=== PATIENT | female | born 1955 | race Caucasian/White ===

== ENCOUNTER → 2016-04-29 | Outpatient (CLI) | payer BC ==
[~2016-04-29] VITALS: Ht 165.1 cm; Wt 63.5 kg
[~2016-04-29] MED LIST: HYDR-3781 PO; HYDR12.55 PO; LEFL1TAB4 PO; LIDOCAINE 2% INJ 100 MG/5 ML SDV (FOR ANES.) As Ordered ONE; LISI10TA4 PO; MECL25CH PO; MULT1TAB18 PO; NS 1,000 ML IV SCH; OMEP40CA2 PO; PROPOFOL 200 MG/20 ML VIAL As Ordered ONE; ROPI0.5T PO; SIMV20TA2 PO
--- NOTE | 2016-04-29 08:15 | ROOR ---
Patient Name: Hoa Rodas Procedure Date: 04/29/2016 7:55 AM Date of : 1955 Age: 60 Room: [facility] Gender: Female Note Status: Finalized Procedure: Colonoscopy to Cecum Indications: High risk colon cancer surveillance: Personal history of colonic polyps Providers: Stephen Zaidi MD Referring MD: Tarah Castillo MD Requesting Provider: Medicines: Monitored Anesthesia Care Complications: No immediate complications. Procedure: Pre-Anesthesia Assessment: - The heart rate, respiratory rate, oxygen saturations, blood pressure, adequacy of pulmonary ventilation, and response to care were monitored throughout the procedure. The Colonoscope was introduced through the anus and advanced to the cecum, identified by appendiceal orifice and ileocecal valve. The colonoscopy was performed without difficulty. The patient tolerated the procedure well. The quality of the bowel preparation was excellent. Findings: The perianal and digital rectal examinations were normal. Non-bleeding internal hemorrhoids were found during retroflexion. The hemorrhoids were small and Grade I (internal hemorrhoids that do not prolapse). No other significant abnormalities were identified in a careful examination of the remainder of the colon. The exam was otherwise without abnormality on direct and retroflexion views. Impression: - Non-bleeding internal hemorrhoids. - The examination was otherwise normal on direct and retroflexion views. - No specimens collected. - The exam was otherwise normal to the cecum. Recommendation: - Patient has a contact number available for emergencies. The signs and symptoms of potential delayed complications were discussed with the patient. Return to normal activities tomorrow. Written discharge instructions were provided to the patient. - High fiber diet. - Discharge patient to home. - Continue present medications. - Repeat colonoscopy in 5 years for surveillance. - Return to referring physician. - The findings and recommendations were discussed with the patient's family. Stephen Zaidi MD Stephen Zaidi MD 04/29/2016 8:14:59 AM This report has been signed electronically. Number of Addenda: 0 Note Initiated On: 04/29/2016 7:55 AM Estimated Blood Loss: Estimated blood loss: none.
[2016-04-29 08:45] VITALS: BP 144/91
== END | disposition home or self-care (01) ==
LOC: M OPP 07:02
PROVIDERS: ATTEND Internal Medicine Gastroenterology
DX: Z12.11 Encounter for screening for malignant neoplasm of colon (principal); K64.0 First degree hemorrhoids; Z86.010 Personal history of colon polyps; I10 Essential (primary) hypertension; E78.5 Hyperlipidemia, unspecified; M35.9 Systemic involvement of connective tissue, unspecified; Z78.0 Asymptomatic menopausal state; Z87.891 Personal history of nicotine dependence; Z79.891 Long term (current) use of opiate analgesic; Z79.899 Other long term (current) drug therapy
CPT/HCPCS: 99156; 99157; G0105

== ENCOUNTER → 2016-06-21 | Outpatient (CLI) | payer BC ==
[~2016-06-21] MED LIST changes: -LIDOCAINE 2% INJ 100 MG/5 ML SDV (FOR ANES.) As Ordered ONE; -NS 1,000 ML IV SCH; -PROPOFOL 200 MG/20 ML VIAL As Ordered ONE
[2016-06-21 10:22] LABS: ALBUMIN 3.8 GM/DL (3.2-5.2); ALBUMIN/GLOBULIN RATIO 1.09 (1.00-1.93); ALKALINE PHOSPHATASE 122 U/L (45-117); ALT/SGPT 27 U/L (12-78); ANION GAP 6 MEQ/L (8-16); AST/SGOT 22 U/L (15-37); BILIRUBIN,TOTAL 0.2 MG/DL (0.2-1.0); BLOOD UREA NITROGEN 19 MG/DL (7-18); CALCIUM LEVEL 8.9 MG/DL (8.5-10.1); CARBON DIOXIDE LEVEL 29 MEQ/L (21-32); CHLORIDE LEVEL 107 MEQ/L (98-107); CHOLESTEROL LEVEL 198 MG/DL (<200); GLOMERULAR FILTRATION RATE > 60.0 (>51); GLUCOSE, FASTING 95 MG/DL (70-105); POTASSIUM SERUM 4.6 MEQ/L (3.5-5.1); SODIUM LEVEL 142 MEQ/L (136-145); TOTAL PROTEIN 7.3 GM/DL (6.4-8.2); TRIGLYCERIDES LEVEL 201 MG/DL (<150)
== END ==
LOC: M LAB 09:08
PROVIDERS: ATTEND Physician Assistant Medical
DX: E78.2 Mixed hyperlipidemia (principal); I10 Essential (primary) hypertension

== ENCOUNTER → 2016-10-03 | Outpatient (CLI) | payer BC ==
[~2016-10-03] MED LIST changes: +MECL1CHW2 PO; -MECL25CH PO
--- NOTE | 2016-10-03 12:20 | REPMRS ---
Patient History The patient states she had a clinical breast exam in September 2016.Patient is postmenopausal. Family history of prostate cancer in father at age 50 or over and endometrial cancer in mother at age 29. Digital Mammo Screening Bilat: October 03, 2016 - Exam #: [id number] Bilateral CC and MLO view(s) were taken. Technologist: Margot Timmons, Technologist Prior study comparison: October 02, 2015, bilateral digital mammo screening bilat performed at [facility]. September 28, 2014, bilateral digital mammo screening bilat performed at [facility]. FINDINGS: There are scattered fibroglandular densities. There has been no change in the appearance of the mammogram from the prior studies. There is a mild amount of residual fibroglandular tissue which is fairly symmetric. There is no interval development of dominant mass, architectural distortion, or clustered microcalcification suggestive of malignancy. ASSESSMENT: BI-RADS/ACR category 1 mammogram. Negative. Recommendation Routine screening mammogram in 1 year (for women over age 40). This mammogram was interpreted with the aid of an FDA-approved computer-aided dectection system. Electronically Signed By: Arsalan Acosta MD 10/03/16 [id number]
== END ==
LOC: M RAD 10:40
PROVIDERS: ATTEND Nurse Practitioner Adult Health
DX: Z12.31 Encounter for screening mammogram for malignant neoplasm of breast (principal)

== ENCOUNTER → 2016-11-07 | Outpatient (CLI) | payer BC ==
[2016-11-07 18:29] LABS: ALBUMIN 3.9 GM/DL (3.2-5.2); ALT/SGPT 32 U/L (12-78); AST/SGOT 24 U/L (15-37); GLOMERULAR FILTRATION RATE > 60.0 (>51)
[2016-11-07 19:01] LABS: BASO # 0.1 K/mm3 (0.0-0.2); BASO % 1.1 % (0.0-1.0); EOS # 0.2 K/mm3 (0.0-0.50); EOS % 3.9 % (0.0-3.0); LYMPH # 2.7 K/mm3 (1.5-4.5); LYMPH % 42.8 % (24.0-44.0); MEAN CORPUSCULAR HEMOGLOBIN 28.4 pg (27.0-33.0); MEAN CORPUSCULAR HGB CONC 34.1 g/dl (32.0-36.5); MEAN CORPUSCULAR VOLUME 83.3 fl (80.0-96.0); MONO # 0.3 K/mm3 (0.0-0.8); MONO % 5.3 % (0.0-5.0); NEUTROPHILS # 2.6 K/mm3 (1.8-7.7); NEUTROPHILS % 44.6 % (36.0-66.0); RED CELL DISTRIBUTION WIDTH 13.8 % (11.5-14.5); WHITE BLOOD COUNT 5.9 K/mm3 (4.0-10.0)
== END ==
LOC: M LAB 11-04 11:27
PROVIDERS: ATTEND Physician Assistant
DX: H90.3 Sensorineural hearing loss, bilateral (principal); Z79.899 Other long term (current) drug therapy

== ENCOUNTER → 2017-03-12 | Outpatient (CLI) | payer BC ==
[2017-03-12 14:00] LABS: BASO % 0.7 % (0.0-1.0); EOS # 0.1 10^3/uL (0.0-0.50); EOS % 2.2 % (0.0-3.0); HEMATOCRIT 39.8 % (36.0-47.0); HEMOGLOBIN 12.9 g/dl (12.0-16.0); IMMATURE GRANULOCYTE % 0.2 % (0-0); LYMPH # 2.1 10^3/uL (1.5-4.5); MEAN CORPUSCULAR HEMOGLOBIN 26.5 pg (27.0-33.0); MEAN CORPUSCULAR HGB CONC 32.4 g/dl (32.0-36.5); MEAN CORPUSCULAR VOLUME 81.7 fl (80.0-96.0); MONO # 0.5 10^3/uL (0.0-0.8); MONO % 8.8 % (0.0-5.0); NEUTROPHILS # 2.6 10^3/uL (1.8-7.7); NEUTROPHILS % 48.1 % (36.0-66.0); PLATELET COUNT, AUTOMATED 320 10^3/uL (150-450); RED BLOOD COUNT 4.87 10^6/uL (4.00-5.40); RED CELL DISTRIBUTION WIDTH 14.1 % (11.5-14.5); WHITE BLOOD COUNT 5.4 10^3/uL (4.0-10.0)
[2017-03-12 14:17] LABS: ALT/SGPT 25 U/L (12-78); ANION GAP 5 MEQ/L (8-16); AST/SGOT 21 U/L (7-37); BLOOD UREA NITROGEN 17 MG/DL (7-18); C REACTIVE PROTEIN QUANTITATIV < 0.30 MG/DL (0.00-0.30); CALCIUM LEVEL 9.5 MG/DL (8.8-10.2); CARBON DIOXIDE LEVEL 30 MEQ/L (21-32); CHLORIDE LEVEL 104 MEQ/L (98-107); CREATININE FOR GFR 0.78 MG/DL (0.55-1.02); GLOMERULAR FILTRATION RATE > 60.0 (>45); GLUCOSE, FASTING 95 MG/DL (80-110); POTASSIUM SERUM 4.6 MEQ/L (3.5-5.1); SODIUM LEVEL 139 MEQ/L (136-145)
[2017-03-12 14:45] LABS: ERYTHROCYTE SEDIMENTATION RATE 27 mm/hr (0-30)
== END ==
LOC: M LAB 13:28
DX: Z79.899 Other long term (current) drug therapy (principal); H90.3 Sensorineural hearing loss, bilateral
CPT/HCPCS: 84460

== ENCOUNTER → 2017-04-30 | Outpatient (REF) | payer SELFPAY ==
[2017-04-30 11:22] LABS: INFLUENZA A AMPLIFICATION POSITIVE (NEGATIVE); INFLUENZA B AMPLIFICATION NEGATIVE (NEGATIVE)
== END ==
LOC: M LAB REF 10:37
DX: J11.1 Influenza due to unidentified influenza virus with other respiratory manifestations (principal)
CPT/HCPCS: 87502

== ENCOUNTER → 2017-06-24 | Outpatient (CLI) | payer BC ==
[2017-06-24 12:52] LABS: CHOLESTEROL LEVEL 233 MG/DL (<200); CHOLESTEROL RISK RATIO 5.295 (<5); HDL CHOLESTEROL 44 MG/DL (>40); LDL CHOLESTEROL 132.8 MG/DL (<100); NON-HDL-C 189 MG/DL; TRIGLYCERIDES LEVEL 281 MG/DL (<150)
== END ==
LOC: M LAB 11:23
DX: E78.2 Mixed hyperlipidemia (principal)

== ENCOUNTER → 2017-06-24 | Outpatient (CLI) | payer BC ==
[2017-06-24 12:00] LABS: BASO % 0.8 % (0.0-1.0); EOS # 0.2 10^3/uL (0.0-0.50); EOS % 3.5 % (0.0-3.0); HEMATOCRIT 39.3 % (36.0-47.0); IMMATURE GRANULOCYTE % 0.2 % (0-3.0); LYMPH # 2.2 10^3/uL (1.5-4.5); LYMPH % 42.2 % (24.0-44.0); MEAN CORPUSCULAR HEMOGLOBIN 27.3 pg (27.0-33.0); MEAN CORPUSCULAR HGB CONC 33.1 g/dl (32.0-36.5); MEAN CORPUSCULAR VOLUME 82.4 fl (80.0-96.0); MONO # 0.4 10^3/uL (0.0-0.8); MONO % 6.9 % (0.0-5.0); NEUTROPHILS # 2.4 10^3/uL (1.8-7.7); NEUTROPHILS % 46.4 % (36.0-66.0); PLATELET COUNT, AUTOMATED 301 10^3/uL (150-450); RED BLOOD COUNT 4.77 10^6/uL (4.00-5.40); RED CELL DISTRIBUTION WIDTH 14.3 % (11.5-14.5); WHITE BLOOD COUNT 5.2 10^3/uL (4.0-10.0)
[2017-06-24 12:53] LABS: ALBUMIN 4.1 GM/DL (3.2-5.2); ALT/SGPT 26 U/L (12-78); AST/SGOT 23 U/L (7-37); C REACTIVE PROTEIN QUANTITATIV < 0.30 MG/DL (0.00-0.30); CREATININE FOR GFR 0.75 MG/DL (0.55-1.30); GLOMERULAR FILTRATION RATE > 60.0 (>45)
[2017-06-24 13:59] LABS: ERYTHROCYTE SEDIMENTATION RATE 30 mm/hr (0-30)
== END ==
LOC: M LAB 11:26
DX: Z51.81 Encounter for therapeutic drug level monitoring (principal); Z79.899 Other long term (current) drug therapy
CPT/HCPCS: 84460

== ENCOUNTER → 2017-10-22 | Outpatient (CLI) | payer BC ==
[2017-10-22 15:58] LABS: BASO % 0.7 % (0.0-1.0); EOS # 0.2 10^3/uL (0.0-0.50); HEMOGLOBIN 12.5 g/dl (12.0-15.5); IMMATURE GRANULOCYTE % 0.4 % (0-3.0); LYMPH # 2.4 10^3/uL (1.5-4.5); LYMPH % 41.9 % (24.0-44.0); MEAN CORPUSCULAR HEMOGLOBIN 28.3 pg (27.0-33.0); MEAN CORPUSCULAR HGB CONC 33.8 g/dl (32.0-36.5); MEAN CORPUSCULAR VOLUME 83.9 fl (80.0-96.0); MONO # 0.4 10^3/uL (0.0-0.8); MONO % 7.8 % (0.0-5.0); NEUTROPHILS # 2.6 10^3/uL (1.8-7.7); NEUTROPHILS % 46.2 % (36.0-66.0); PLATELET COUNT, AUTOMATED 300 10^3/uL (150-450); RED BLOOD COUNT 4.41 10^6/uL (4.00-5.40); RED CELL DISTRIBUTION WIDTH 13.5 % (11.5-14.5); WHITE BLOOD COUNT 5.6 10^3/uL (4.0-10.0)
[2017-10-22 16:19] LABS: ERYTHROCYTE SEDIMENTATION RATE 26 mm/hr (0-30)
[2017-10-22 16:43] LABS: ALBUMIN 3.7 GM/DL (3.2-5.2); ALT/SGPT 27 U/L (12-78); AST/SGOT 21 U/L (7-37); C REACTIVE PROTEIN QUANTITATIV < 0.30 MG/DL (0.00-0.30); CREATININE FOR GFR 0.82 MG/DL (0.55-1.30); GLOMERULAR FILTRATION RATE > 60.0 (>45)
== END ==
LOC: M LAB 15:31
DX: Z51.81 Encounter for therapeutic drug level monitoring (principal); Z79.899 Other long term (current) drug therapy; H90.3 Sensorineural hearing loss, bilateral
CPT/HCPCS: 84460

== ENCOUNTER → 2017-11-17 | Outpatient (CLI) | payer BC | LOC: M RAD 11:39 | DX: R92.8 Other abnormal and inconclusive findings on diagnostic imaging of breast (principal) | CPT/HCPCS: 77067 ==

== ENCOUNTER → 2017-11-26 | Outpatient (CLI) | payer BC | LOC: M RAD 13:36 | DX: N63.10 Unspecified lump in the right breast, unspecified quadrant (principal); R92.1 Mammographic calcification found on diagnostic imaging of breast | CPT/HCPCS: 77065 ==

== ENCOUNTER → 2017-12-26 | Outpatient (CLI) | payer BC ==
[2017-12-26 11:48] LABS: ALBUMIN 3.9 GM/DL (3.2-5.2); ALBUMIN/GLOBULIN RATIO 1.15 (1.00-1.93); ALKALINE PHOSPHATASE 110 U/L (45-117); ALT/SGPT 27 U/L (12-78); ANION GAP 7 MEQ/L (8-16); AST/SGOT 23 U/L (7-37); BILIRUBIN,TOTAL 0.3 MG/DL (0.2-1.0); BLOOD UREA NITROGEN 18 MG/DL (7-18); CARBON DIOXIDE LEVEL 29 MEQ/L (21-32); CHLORIDE LEVEL 106 MEQ/L (98-107); CHOLESTEROL LEVEL 224 MG/DL (<200); CHOLESTEROL RISK RATIO 4.977 (<5); CREATININE FOR GFR 0.84 MG/DL (0.55-1.30); GLOMERULAR FILTRATION RATE > 60.0 (>45); GLUCOSE, FASTING 82 MG/DL (70-100); HDL CHOLESTEROL 45 MG/DL (>40); LDL CHOLESTEROL 134 MG/DL (<100); NON-HDL-C 179 MG/DL; POTASSIUM SERUM 4.8 MEQ/L (3.5-5.1); SODIUM LEVEL 142 MEQ/L (136-145); TOTAL PROTEIN 7.3 GM/DL (6.4-8.2); TRIGLYCERIDES LEVEL 225 MG/DL (<150)
== END ==
LOC: M LAB 10:10
DX: E78.2 Mixed hyperlipidemia (principal); I10 Essential (primary) hypertension
CPT/HCPCS: 80053

== ENCOUNTER → 2019-01-26 | Outpatient (CLI) | payer BC ==
[~2019-01-26] MED LIST changes: -HYDR-3781 PO; +HYDR2.5T34 PO; +MECL1CHW PO; -MECL1CHW2 PO; -OMEP40CA2 PO; +OMEP40CA97 PO
[2019-01-26 10:51] LABS: BASO # 0.1 10^3/uL (0.0-0.2); EOS # 0.2 10^3/uL (0.0-0.5); EOS % 3.3 % (0.0-3.0); HEMATOCRIT 38.8 % (36.0-47.0); HEMOGLOBIN 12.3 g/dl (12.0-15.5); LYMPH # 2.5 10^3/uL (1.5-5.0); LYMPH % 48.7 % (24.0-44.0); MEAN CORPUSCULAR HEMOGLOBIN 27.2 pg (27.0-33.0); MEAN CORPUSCULAR HGB CONC 31.7 g/dl (32.0-36.5); MEAN CORPUSCULAR VOLUME 85.7 fl (80.0-96.0); MONO # 0.4 10^3/uL (0.0-0.8); MONO % 8.5 % (0.0-5.0); NEUTROPHILS % 38.1 % (36.0-66.0); PLATELET COUNT, AUTOMATED 358 10^3/uL (150-450); RED BLOOD COUNT 4.53 10^6/uL (4.00-5.40); WHITE BLOOD COUNT 5.2 10^3/uL (4.0-10.0)
[2019-01-26 11:15] LABS: ALBUMIN 3.6 GM/DL (3.2-5.2); ALT/SGPT 24 U/L (12-78); BILIRUBIN,TOTAL 0.3 MG/DL (0.2-1.0); BLOOD UREA NITROGEN 17 MG/DL (7-18); CALCIUM LEVEL 9.4 MG/DL (8.8-10.2); CARBON DIOXIDE LEVEL 30 MEQ/L (21-32); CHLORIDE LEVEL 107 MEQ/L (98-107); CHOLESTEROL LEVEL 174 MG/DL (<200); CHOLESTEROL RISK RATIO 4.142 (<5); CREATININE FOR GFR 0.79 MG/DL (0.55-1.30); GLOMERULAR FILTRATION RATE > 60.0 (>45); GLUCOSE, FASTING 86 MG/DL (70-100); HDL CHOLESTEROL 42 MG/DL (>40); LDL CHOLESTEROL 90 MG/DL (<100); NON-HDL-C 132 MG/DL; POTASSIUM SERUM 4.1 MEQ/L (3.5-5.1); SODIUM LEVEL 143 MEQ/L (136-145); TOTAL PROTEIN 7.1 GM/DL (6.4-8.2); TRIGLYCERIDES LEVEL 209 MG/DL (<150)
== END ==
LOC: M LAB 10:16
PROVIDERS: ATTEND Physician Assistant
DX: E78.2 Mixed hyperlipidemia (principal); G25.81 Restless legs syndrome

== ENCOUNTER → 2019-09-01 | Outpatient (CLI) | payer BC ==
[~2019-09-01] MED LIST changes: -ROPI0.5T PO; +ROPI0.5T3 PO; -SIMV20TA2 PO; +SIMV20TA22 PO
[2019-09-01 14:57] LABS: ALT/SGPT 31 U/L (12-78); GLOMERULAR FILTRATION RATE > 60.0 (>45)
[2019-09-01 15:22] LABS: BASO # 0.1 10^3/uL (0.0-0.2); BASO % 0.9 % (0.0-1.0); EOS # 0.1 10^3/uL (0.0-0.5); EOS % 2.3 % (0.0-3.0); HEMATOCRIT 40.7 % (36.0-47.0); HEMOGLOBIN 13.2 g/dl (12.0-15.5); LYMPH # 2.5 10^3/uL (1.5-5.0); MEAN CORPUSCULAR HEMOGLOBIN 27.2 pg (27.0-33.0); MEAN CORPUSCULAR HGB CONC 32.4 g/dl (32.0-36.5); MEAN CORPUSCULAR VOLUME 83.9 fl (80.0-96.0); MONO # 0.4 10^3/uL (0.0-0.8); MONO % 7.5 % (0.0-5.0); NEUTROPHILS # 2.5 10^3/uL (1.5-8.5); NEUTROPHILS % 44.1 % (36.0-66.0); PLATELET COUNT, AUTOMATED 330 10^3/uL (150-450); RED BLOOD COUNT 4.85 10^6/uL (4.00-5.40); WHITE BLOOD COUNT 5.6 10^3/uL (4.0-10.0)
== END ==
LOC: M LAB 14:08
PROVIDERS: ATTEND Physician Assistant
DX: Z79.899 Other long term (current) drug therapy (principal)

== ENCOUNTER → 2020-01-07 | Outpatient (CLI) | payer BC ==
[2020-01-07 13:19] LABS: ALBUMIN 3.7 GM/DL (3.2-5.2); ALT/SGPT 32 U/L (12-78); BILIRUBIN,TOTAL 0.3 MG/DL (0.2-1.0); BLOOD UREA NITROGEN 12 MG/DL (7-18); CALCIUM LEVEL 9.5 MG/DL (8.8-10.2); CARBON DIOXIDE LEVEL 29 MEQ/L (21-32); CHLORIDE LEVEL 106 MEQ/L (98-107); CHOLESTEROL LEVEL 216 MG/DL (<200); CHOLESTEROL RISK RATIO 5.268 (<5); CREATININE FOR GFR 0.73 MG/DL (0.55-1.30); FREE T4 0.76 NG/DL (0.76-1.46); GLOMERULAR FILTRATION RATE > 60.0 (>45); GLUCOSE, FASTING 77 MG/DL (70-100); HDL CHOLESTEROL 41 MG/DL (>40); NON-HDL-C 175 MG/DL; POTASSIUM SERUM 4.2 MEQ/L (3.5-5.1); SODIUM LEVEL 141 MEQ/L (136-145); TOTAL PROTEIN 7.4 GM/DL (6.4-8.2); TRIGLYCERIDES LEVEL 462 MG/DL (<150)
== END ==
LOC: M LAB 11:55
PROVIDERS: ATTEND Nurse Practitioner Family
DX: I10 Essential (primary) hypertension (principal)

== ENCOUNTER 2020-03-08 12:16 | Emergency (ER) | payer BC, MEDICARE ==
[~2020-03-08] VITALS: Ht 162.6 cm; Wt 64.9 kg
[~2020-03-08 12:16] MED LIST changes: +LISI10TA22 PO; -LISI10TA4 PO
[2020-03-08 12:17] VITALS: BP 174/106
[2020-03-08] MEDS ORDERED: NS 1,000 ML IV SCH (13:13)
[2020-03-08] MEDS ORDERED: PANTOPRAZOLE 40MG VIAL (C9113 PER 1) IV ONE (13:15)
[2020-03-08] MEDS ORDERED: ASPIRIN 81 MG CHEW TABLET PO ONE (13:15)
[2020-03-08] MEDS ORDERED: GI COCKTAIL 50ML BTL(HYOSCYAMINE/MAALOX/LIDOCAINE VISCOUS)(1:3:1) PO ONE (13:15)
[2020-03-08 13:28] LABS: BASO # 0.1 10^3/uL (0.0-0.2); BASO % 0.5 % (0.0-1.0); EOS # 0.1 10^3/uL (0.0-0.5); EOS % 0.5 % (0.0-3.0); HEMOGLOBIN 13.5 g/dl (12.0-15.5); LYMPH # 1.6 10^3/uL (1.5-5.0); LYMPH % 16.4 % (24.0-44.0); MEAN CORPUSCULAR HEMOGLOBIN 26.9 pg (27.0-33.0); MEAN CORPUSCULAR HGB CONC 32.1 g/dl (32.0-36.5); MEAN CORPUSCULAR VOLUME 83.7 fl (80.0-96.0); MONO # 0.5 10^3/uL (0.0-0.8); MONO % 4.9 % (0.0-5.0); NEUTROPHILS # 7.7 10^3/uL (1.5-8.5); NEUTROPHILS % 77.2 % (36.0-66.0); PLATELET COUNT, AUTOMATED 357 10^3/uL (150-450); RED BLOOD COUNT 5.02 10^6/uL (4.00-5.40)
[2020-03-08 13:48] LABS: INR 1.04; PROTHROMBIN TIME 13.8 SECONDS (12.5-14.3)
[2020-03-08 14:04] LABS: ALBUMIN 4.1 GM/DL (3.2-5.2); ALT/SGPT 48 U/L (12-78); BILIRUBIN,DIRECT < 0.1 MG/DL (0.0-0.2); BILIRUBIN,TOTAL 0.3 MG/DL (0.2-1.0); BLOOD UREA NITROGEN 14 MG/DL (7-18); CALCIUM LEVEL 9.9 MG/DL (8.8-10.2); CARBON DIOXIDE LEVEL 28 MEQ/L (21-32); CHLORIDE LEVEL 106 MEQ/L (98-107); CK-MB VALUE MASS 3.3 NG/ML (<3.6); CPK CREATINE PHOSPHOKINASE 579 U/L (26-192); CREATININE FOR GFR 0.76 MG/DL (0.55-1.30); GLOMERULAR FILTRATION RATE > 60.0 (>45); GLUCOSE, FASTING 97 MG/DL (70-100); LIPASE 444 U/L (73-393); MB/CK RELATIVE INDEX 0.57 (< OR =4); POTASSIUM SERUM 4.2 MEQ/L (3.5-5.1); SODIUM LEVEL 141 MEQ/L (136-145); TOTAL PROTEIN 7.7 GM/DL (6.4-8.2); TROPONIN I < 0.02 NG/ML (< 0.10)
--- NOTE | 2020-03-08 14:36 | REP ---
INDICATION: CHEST PAIN COMPARISON: None. TECHNIQUE: Portable AP view of the chest FINDINGS: The mediastinum and cardiac silhouette are within normal limits for portable technique. The lung spence are clear without acute consolidation, effusion, or pneumothorax. Trace left basilar atelectasis versus chronic change suspected. Skeletal structures are intact. IMPRESSION: Trace linear fibroatelectatic changes at the left base are nonspecific. <Electronically signed by Tavares Rey > 03/08/20 [id number]
--- NOTE | 2020-03-08 16:05 | REP ---
INDICATION: epigastric pain. COMPARISON: Comparison CT study of the abdomen 2011.. TECHNIQUE: Complete transabdominal sonography. FINDINGS: Scanning through the right upper quadrant of the abdomen demonstrates a normal sized and walled gallbladder without evidence of stone or polyp. Common bile duct is normal measuring 0.4 cm in greatest diameter. Liver is normal in size. There is a 6 mm cyst in the left lobe of the liver. No other focal liver lesion is appreciated. A normal caliber aorta is seen 2.0 cm in greatest anteroposterior dimension. Limited views of pancreas show no significant abnormality. The spleen is normal in size and homogeneous in texture, 9.3 cm in greatest diameter. There is no evidence of ascites. Renal cortical echogenicity pattern is normal and renal contours are smooth bilaterally. There is no evidence of mass or hydronephrosis. There is a 1.2 cm cyst in the lower pole of the left kidney. Left renal dimensions are 9.8 x 4.2 x 4.2 cm. Right kidney measures 9.1 x 4.3 x 5.1 cm. There is no evidence of ascites. IMPRESSION: 6 mm left lobe hepatic cyst. 12 mm cyst lower pole left kidney. Otherwise negative complete abdominal sonography. <Electronically signed by Rolando Dumont > 03/08/20 [id number]
[2020-03-08] MEDS ORDERED: MORPHINE 2 MG/ML 1ML VIAL (J2270) IV ONE (16:15)
[2020-03-08] MEDS ORDERED: ONDANSETRON 4MG/2ML VIAL IV ONE (16:15)
[2020-03-08] MEDS ORDERED: NORC1TAB7 PO (16:40)
[2020-03-08] MEDS ORDERED: ZOFR4TAB16 PO (16:40)
--- NOTE | 2020-03-09 07:03 | ED PDOC ---
Post-Departure Follow-Up radiology report faxed to Martha Dao MD Mar 09, 2020 07:03
--- NOTE | 2020-03-09 13:29 | ECGEPIP ---
[facility] - ED Test Date: 2020-03-08 Pat Name: CLINT KRISHNAN Department: Room: - Gender: Female Legal Internship: MAKENNA : 1955 Requested By: ESTHER Albarran Order Number: [id number] Reading MD: Martha Morgan Measurements Intervals [place] Rate: 93 P: 66 MO: 182 QRS: 2 QRSD: 75 T: 51 QT: 345 QTc: 429 Interpretive Statements SINUS RHYTHM MINIMAL ST DEPRESSION No prior Electronically Signed on 03-09-2020 13:29:29 EST by Martha Morgan
== END 2020-03-08 17:30 | disposition home or self-care (01) ==
LOC: M ED 12:16
DX: K85.90 Acute pancreatitis without necrosis or infection, unspecified (principal); I10 Essential (primary) hypertension; Z79.899 Other long term (current) drug therapy; Z87.891 Personal history of nicotine dependence
CPT/HCPCS: 71045; 76700; 80048; 80076; 82550; 82553; 83690; 84484; 85025; 85610; 93005; 93041; 94760; 96361; 96374; 96375; 99284; C9113; J2270; J2405

== ENCOUNTER → 2020-03-13 | Outpatient (CLI) | payer BC ==
[~2020-03-13] MED LIST changes: -LISI10TA22 PO; +LISI10TA4 PO; +NORC1TAB7 PO; +ZOFR4TAB16 PO
[2020-03-13 11:04] LABS: EOS # 0.2 10^3/uL (0.0-0.5); EOS % 5.5 % (0.0-3.0); HEMATOCRIT 37.4 % (36.0-47.0); HEMOGLOBIN 11.9 g/dl (12.0-15.5); LYMPH # 1.7 10^3/uL (1.5-5.0); LYMPH % 40.5 % (24.0-44.0); MEAN CORPUSCULAR HGB CONC 31.8 g/dl (32.0-36.5); MEAN CORPUSCULAR VOLUME 81.8 fl (80.0-96.0); MONO # 0.5 10^3/uL (0.0-0.8); NEUTROPHILS # 1.7 10^3/uL (1.5-8.5); NEUTROPHILS % 40.8 % (36.0-66.0); PLATELET COUNT, AUTOMATED 380 10^3/uL (150-450); RED BLOOD COUNT 4.57 10^6/uL (4.00-5.40); WHITE BLOOD COUNT 4.2 10^3/uL (4.0-10.0)
[2020-03-13 11:26] LABS: ALBUMIN 3.5 GM/DL (3.2-5.2); ALT/SGPT 28 U/L (12-78); BILIRUBIN,TOTAL 0.3 MG/DL (0.2-1.0); BLOOD UREA NITROGEN 8 MG/DL (7-18); CALCIUM LEVEL 9.3 MG/DL (8.8-10.2); CARBON DIOXIDE LEVEL 30 MEQ/L (21-32); CHLORIDE LEVEL 103 MEQ/L (98-107); CHOLESTEROL LEVEL 214 MG/DL (<200); CPK CREATINE PHOSPHOKINASE 123 U/L (26-192); CREATININE FOR GFR 0.78 MG/DL (0.55-1.30); GLOMERULAR FILTRATION RATE > 60.0 (>45); GLUCOSE, FASTING 97 MG/DL (70-100); HDL CHOLESTEROL 40 MG/DL (>40); LDL CHOLESTEROL 142 MG/DL (<100); NON-HDL-C 174 MG/DL; POTASSIUM SERUM 4.1 MEQ/L (3.5-5.1); SODIUM LEVEL 138 MEQ/L (136-145); TOTAL PROTEIN 7.2 GM/DL (6.4-8.2); TRIGLYCERIDES LEVEL 160 MG/DL (<150)
== END ==
LOC: M LAB 09:48
PROVIDERS: ATTEND Nurse Practitioner Family
DX: K85.90 Acute pancreatitis without necrosis or infection, unspecified (principal)

== ENCOUNTER → 2020-07-13 | Outpatient (CLI) | payer BC ==
[~2020-07-13] MED LIST changes: +LISI10TA22 PO; -LISI10TA4 PO
[2020-07-13 13:39] LABS: BLOOD UREA NITROGEN 13 MG/DL (7-18); CALCIUM LEVEL 9.9 MG/DL (8.8-10.2); CARBON DIOXIDE LEVEL 27 MEQ/L (21-32); CHLORIDE LEVEL 107 MEQ/L (98-107); CREATININE FOR GFR 0.71 MG/DL (0.55-1.30); GLOMERULAR FILTRATION RATE > 60.0 (>45); GLUCOSE, FASTING 92 MG/DL (70-100); POTASSIUM SERUM 4.7 MEQ/L (3.5-5.1); SODIUM LEVEL 139 MEQ/L (136-145)
[2020-07-13 13:40] LABS: ALT/SGPT 32 U/L (12-78); BILIRUBIN,TOTAL 0.3 MG/DL (0.2-1.0); CHOLESTEROL LEVEL 206 MG/DL (<200); HDL CHOLESTEROL 40 MG/DL (>40); LDL CHOLESTEROL 99 MG/DL (<100); NON-HDL-C 166 MG/DL; TOTAL PROTEIN 7.4 GM/DL (6.4-8.2); TRIGLYCERIDES LEVEL 335 MG/DL (<150)
== END ==
LOC: M LAB 12:13
PROVIDERS: ATTEND Nurse Practitioner Family
DX: I10 Essential (primary) hypertension (principal)

== ENCOUNTER → 2020-09-19 | Outpatient (CLI) | payer BC ==
[~2020-09-19] MED LIST changes: +OMEP40CA4 PO; -OMEP40CA97 PO
== END ==
LOC: M RAD 09:08
PROVIDERS: ATTEND Nurse Practitioner Family
DX: K76.89 Other specified diseases of liver (principal); N28.1 Cyst of kidney, acquired

== ENCOUNTER → 2021-06-19 | Outpatient (CLI) | payer MEDICARE ==
[2021-06-19 11:25] LABS: ALT/SGPT 32 U/L (12-78); BILIRUBIN,TOTAL 0.5 MG/DL (0.2-1.0); BLOOD UREA NITROGEN 18 MG/DL (7-18); CALCIUM LEVEL 9.7 MG/DL (8.8-10.2); CARBON DIOXIDE LEVEL 29 MEQ/L (21-32); CHLORIDE LEVEL 107 MEQ/L (98-107); CHOLESTEROL LEVEL 234 MG/DL (<200); CHOLESTEROL RISK RATIO 5.086 (<5); CREATININE FOR GFR 0.71 MG/DL (0.55-1.30); GLOMERULAR FILTRATION RATE > 60.0 (>45); GLUCOSE, FASTING 82 MG/DL (70-100); HDL CHOLESTEROL 46 MG/DL (>40); LDL CHOLESTEROL 114 MG/DL (<100); NON-HDL-C 188 MG/DL; POTASSIUM SERUM 4.3 MEQ/L (3.5-5.1); SODIUM LEVEL 142 MEQ/L (136-145); TOTAL PROTEIN 7.7 GM/DL (6.4-8.2); TRIGLYCERIDES LEVEL 371 MG/DL (<150)
== END ==
LOC: M LAB 09:36
PROVIDERS: ATTEND Nurse Practitioner Family
DX: I10 Essential (primary) hypertension (principal)

== ENCOUNTER → 2021-08-03 | Outpatient (CLI) | payer MEDICARE ==
[2021-08-03 12:31] LABS: ALBUMIN 3.7 GM/DL (3.2-5.2); BILIRUBIN,DIRECT 0.1 MG/DL (0.0-0.2); BILIRUBIN,TOTAL 0.4 MG/DL (0.2-1.0); CHOLESTEROL RISK RATIO 4.302 (<5); TOTAL PROTEIN 7.3 GM/DL (6.4-8.2)
== END ==
LOC: M LAB 10:51
PROVIDERS: ATTEND Family Medicine
DX: E78.2 Mixed hyperlipidemia (principal)

== ENCOUNTER → 2022-06-07 | Outpatient (CLI) | payer BC, MEDICARE ==
[2022-06-07 09:39] LABS: BASO % 0.8 % (0.0-1.0); EOS # 0.1 10^3/uL (0.0-0.5); HEMATOCRIT 41.8 % (36.0-47.0); HEMOGLOBIN 13.3 g/dl (12.0-15.5); LYMPH # 2.1 10^3/uL (1.5-5.0); LYMPH % 44.8 % (24.0-44.0); MEAN CORPUSCULAR HGB CONC 31.8 g/dl (32.0-36.5); MEAN CORPUSCULAR VOLUME 84.8 fl (80.0-96.0); MONO # 0.4 10^3/uL (0.0-0.8); MONO % 8.9 % (2.0-8.0); NEUTROPHILS % 42.3 % (36.0-66.0); PLATELET COUNT, AUTOMATED 362 10^3/uL (150-450); RED BLOOD COUNT 4.93 10^6/uL (4.00-5.40); WHITE BLOOD COUNT 4.7 10^3/uL (4.0-10.0)
[2022-06-07 10:06] LABS: ALKALINE PHOSPHATASE 116 U/L (46-116); ALT/SGPT 25 U/L (7.0-40); AST/SGOT 22 U/L (<34); BILIRUBIN,TOTAL 0.4 MG/DL (0.3-1.2); BLOOD UREA NITROGEN 9 MG/DL (9-23); CALCIUM LEVEL 9.5 MG/DL (8.3-10.6); CARBON DIOXIDE LEVEL 29 MMOL/L (20-31); CHLORIDE LEVEL 104 MMOL/L (98-107); CHOLESTEROL LEVEL 196 MG/DL (<200); CHOLESTEROL RISK RATIO 4.65 (<5); CREATININE FOR GFR 0.59 MG/DL (0.55-1.30); GLOMERULAR FILTRATION RATE > 60.0 (>45); GLUCOSE, FASTING 88 MG/DL (74-106); HDL CHOLESTEROL 42.1 MG/DL (>40); LDL CHOLESTEROL 99.9 MG/DL (<100); NON-HDL-C 153.9 MG/DL; POTASSIUM SERUM 3.8 MMOL/L (3.5-5.1); SODIUM LEVEL 141 MMOL/L (136-145); TRIGLYCERIDES LEVEL 270 MG/DL (<150)
== END ==
LOC: M LAB 08:53
PROVIDERS: ATTEND Nurse Practitioner Family
DX: I10 Essential (primary) hypertension (principal)

== ENCOUNTER 2023-04-28 09:13 | Day surgery (SDC) | payer MEDICARE ==
[~2023-04-28] VITALS: Ht 162.6 cm; Wt 62.0 kg
[~2023-04-28 09:13] MED LIST changes: +ATOR1TAB21 PO; -LEFL1TAB4 PO; +LEFL20TA15 PO; +MECL-86 PO; -ROPI0.5T3 PO; +ROPI0.5T33 PO
[2023-04-28] MEDS: NS 1,000 ML IV ONE (09:55)
[2023-04-28] MEDS ORDERED: propofoL 200 MG/20 ML VIAL As Ordered ONE (10:37)
[2023-04-28 11:38] VITALS: BP 160/77; TEMP 98.4; O2SAT 100
== END 2023-04-28 11:21 | disposition home or self-care (01) ==
LOC: M OPP 09:13
PROVIDERS: ATTEND Internal Medicine Gastroenterology
DX: Z86.010 Personal history of colon polyps (principal); K64.0 First degree hemorrhoids; Z79.02 Long term (current) use of antithrombotics/antiplatelets; Z79.899 Other long term (current) drug therapy

== ENCOUNTER 2023-05-06 01:17 | Emergency (ER) | payer MEDICARE ==
[~2023-05-06] VITALS: Ht 162.6 cm; Wt 61.9 kg
[2023-05-06] MEDS: FAMOTIDINE 20MG/2ML VIAL IVP ONE (01:51)
[2023-05-06] MEDS: diphenhydrAMINE 50MG/ML VIAL IV ONE (01:51)
[2023-05-06] MEDS: TRANEXAMIC ACID INJection 1,000 MG in D5W MINI-BAG PLUS 100 ML IV ONE (01:51)
[2023-05-06] MEDS: methylPREDNISolone 125MG 2ML VIAL IV ONE (01:51)
[2023-05-06] MEDS ORDERED: ISOVUE-370 76% 100ML VIAL As Ordered ONE (01:52)
[2023-05-06 01:56] LABS: BASO # 0.1 10^3/uL (0.0-0.2); BASO % 0.6 % (0.0-1.0); EOS # 0.2 10^3/uL (0.0-0.5); EOS % 1.8 % (0.0-3.0); HEMATOCRIT 39.9 % (36.0-47.0); HEMOGLOBIN 13.4 g/dl (12.0-15.5); LYMPH # 3.1 10^3/uL (1.5-5.0); MEAN CORPUSCULAR HEMOGLOBIN 27.3 pg (27.0-33.0); MEAN CORPUSCULAR HGB CONC 33.6 g/dl (32.0-36.5); MEAN CORPUSCULAR VOLUME 81.4 fl (80.0-96.0); MONO # 0.6 10^3/uL (0.0-0.8); MONO % 7.4 % (2.0-8.0); NEUTROPHILS # 4.4 10^3/uL (1.5-8.5); PLATELET COUNT, AUTOMATED 438 10^3/uL (150-450); WHITE BLOOD COUNT 8.4 10^3/uL (4.0-10.0)
[2023-05-06] MEDS: RACEPINEPHrine 2.25% UD INHAL NEB ONE (01:56)
[2023-05-06 02:02] LABS: ERYTHROCYTE SEDIMENTATION RATE 44 mm/hr (0-30)
[2023-05-06 02:22] LABS: C REACTIVE PROTEIN QUANTITATIV < 0.40 MG/DL (<1.0)
[2023-05-06 02:24] LABS: ALBUMIN 4.1 G/DL (3.2-5.2); ALKALINE PHOSPHATASE 142 U/L (46-116); ALT/SGPT 22 U/L (7.0-40); AST/SGOT 16 U/L (<34); BILIRUBIN,DIRECT 0.1 MG/DL (<0.4); BILIRUBIN,TOTAL 0.5 MG/DL (0.3-1.2); BLOOD UREA NITROGEN 11 MG/DL (9-23); CALCIUM LEVEL 9.6 MG/DL (8.3-10.6); CARBON DIOXIDE LEVEL 26 MMOL/L (20-31); CHLORIDE LEVEL 100 MMOL/L (98-107); CREATININE FOR GFR 0.65 MG/DL (0.55-1.30); GLOMERULAR FILTRATION RATE > 60.0 (>45); GLUCOSE, FASTING 116 MG/DL (74-106); POTASSIUM SERUM 3.7 MMOL/L (3.5-5.1); SODIUM LEVEL 136 MMOL/L (136-145); TOTAL PROTEIN 7.4 G/DL (5.7-8.2)
[2023-05-06] MEDS ORDERED: NORV5TAB PO (05:42)
[2023-05-06] MEDS ORDERED: PRED20TA PO (05:49)
[2023-05-06 06:00] VITALS: BP 138/73
[2023-05-06 06:17] VITALS: TEMP 98.1; O2SAT 91
[2023-05-09 17:08] LABS: C1 ESTER INHIB. NON FUNCTIONAL 34 mg/dL (21-39); C1 ESTERASE INHIB. FUNCTIONAL > 93 (.); COAGULATION FACTOR XII ACTIVIT 115 % (50-150); TRYPTASE 14.4 ug/L (2.2-13.2)
== END 2023-05-06 06:35 | disposition home or self-care (01) ==
LOC: M ED 01:17
DX: R22.1 Localized swelling, mass and lump, neck (principal); T46.4X5A Adverse effect of angiotensin-converting-enzyme inhibitors, initial encounter; I10 Essential (primary) hypertension; Z79.899 Other long term (current) drug therapy; Z79.52 Long term (current) use of systemic steroids
CPT/HCPCS: 70491; 80047; 80048; 80076; 83519; 85025; 85280; 85652; 86140; 86160; 86161; 87430; 87486; 87581; 87633; 87798; 93041; 94640; 94760; 96374; 99285; J1200; J2930; Q9967

== ENCOUNTER → 2023-05-10 | Outpatient (CLI) | payer MEDICARE ==
[~2023-05-10] MED LIST changes: +NORV5TAB PO; +PRED20TA PO
[2023-05-10 11:22] LABS: CHOLESTEROL RISK RATIO 3.49 (<5); HDL CHOLESTEROL 54.4 MG/DL (>40); LDL CHOLESTEROL 102.6 MG/DL (<100); NON-HDL-C 135.6 MG/DL
== END ==
LOC: M LAB 09:31
PROVIDERS: ATTEND Registered Nurse
DX: E78.2 Mixed hyperlipidemia (principal)

== ENCOUNTER → 2023-06-30 | Outpatient (CLI) | payer MEDICARE | LOC: M PLAIMG 10:05 | PROVIDERS: ATTEND Registered Nurse | DX: J20.9 Acute bronchitis, unspecified (principal) ==

== ENCOUNTER → 2023-07-02 | Outpatient (CLI) | payer MEDICARE | LOC: M PLAIMG 09:57 | PROVIDERS: ATTEND Registered Nurse | DX: R91.1 Solitary pulmonary nodule (principal) ==

== ENCOUNTER 2023-07-16 07:06 | Day surgery (SDC) | payer MEDICARE ==
[~2023-07-16] VITALS: Ht 160 cm; Wt 60.7 kg
[~2023-07-16 07:06] MED LIST changes: +ALBU8.5H; +ALBUTEROL SULFATE 2.5MG/0.5ML INH NEB SOLN INH ONE; +LIDOCAINE PRES-FREE 2% 10ML AMP INH ONE; +LOSA25TA13 PO; +[UNRECOGNIZED DRUG - OTHER] PO
[2023-07-16] MEDS ORDERED: LIDOCAINE 2% 100MG/5ML SDV (FOR ANES.) As Ordered ONE (08:26)
[2023-07-16] MEDS ORDERED: propofoL 200 MG/20 ML VIAL As Ordered ONE (08:26)
[2023-07-16] MEDS ORDERED: ROCURONIUM BROMIDE 50MG/5ML VIAL As Ordered ONE (08:26)
[2023-07-16] MEDS ORDERED: ONDANSETRON 4MG 2ML VIAL As Ordered ONE (08:26)
[2023-07-16] MEDS ORDERED: SUGAMMADEX SODIUM 500 MG/5 ML VIAL (BRIDION) As Ordered ONE (08:26)
[2023-07-16] MEDS ORDERED: fentaNYL 100 MCG/2 ML INJECTION As Ordered ONE (08:29)
[2023-07-16] MEDS ORDERED: MIDAZOLAM INJ 2MG/2ML VIAL As Ordered ONE (08:29)
[2023-07-16] MEDS: LIDOCAINE PRES-FREE 2% 10ML AMP INH ONE (08:47)
[2023-07-16] MEDS: ALBUTEROL SULFATE 2.5MG/0.5ML INH NEB SOLN INH ONE (08:47)
[2023-07-16] MEDS: LR 1,000 ML IV SCH (08:48)
[2023-07-16] MEDS: EPINEPHrine 1MG/10ML SYRINGE 1.5IN As Ordered ONE (10:20)
[2023-07-16] MEDS: CETACAINE SPRAY 5GM As Ordered ONE (10:20)
[2023-07-16] MEDS ORDERED: fentaNYL 100 MCG/2 ML INJECTION IV PRN (10:30)
[2023-07-16] MEDS ORDERED: HYDROMORPHONE HCL 0.5 MG/ 0.5 ML SYRINGE IV PRN (10:30)
[2023-07-16] MEDS ORDERED: LR 1,000 ML IV SCH (10:30)
[2023-07-16] MEDS ORDERED: ONDANSETRON 4MG 2ML VIAL IV PRN (10:30)
[2023-07-16] MEDS ORDERED: oxyCODONE 5MG TAB PO PRN (10:30)
[2023-07-16 11:49] VITALS: BP 132/86; TEMP 97.7; O2SAT 97
== END 2023-07-16 12:09 | disposition home or self-care (01) ==
LOC: M SDC 07:06
PROVIDERS: ATTEND Internal Medicine Pulmonary Disease
DX: C34.2 Malignant neoplasm of middle lobe, bronchus or lung (principal); C77.1 Secondary and unspecified malignant neoplasm of intrathoracic lymph nodes; I10 Essential (primary) hypertension; E78.00 Pure hypercholesterolemia, unspecified; J44.9 Chronic obstructive pulmonary disease, unspecified; K21.9 Gastro-esophageal reflux disease without esophagitis; R42 Dizziness and giddiness; Z88.8 Allergy status to other drugs, medicaments and biological substances; Z79.899 Other long term (current) drug therapy
CPT/HCPCS: 31623; 31624; 31627; 31629; 31652; 71045; 76000; 88104; 88108; 88173; 88305; 88313; 93005; C1601; J0171; J1100; J2250; J2405; J3010

== ENCOUNTER → 2023-07-21 | Outpatient (CLI) | payer MEDICARE ==
[~2023-07-21] MED LIST changes: -ALBUTEROL SULFATE 2.5MG/0.5ML INH NEB SOLN INH ONE; -LIDOCAINE PRES-FREE 2% 10ML AMP INH ONE
== END ==
LOC: M PLARAD 13:27
PROVIDERS: ATTEND Internal Medicine Pulmonary Disease
DX: R91.8 Other nonspecific abnormal finding of lung field (principal)
CPT/HCPCS: 78815; A9552

== ENCOUNTER → 2023-08-06 | Outpatient (CLI) | payer MEDICARE ==
[~2023-08-06] MED LIST changes: +LIDOCAINE 1% MDV 20ML VIAL As Ordered ONE; +LIDOCAINE W/EPINEPHRINE 1% 20ML VIAL As Ordered ONE; +MAGN400T2 PO; +MAGN400T35 PO; +MIDAZOLAM INJ 2MG/2ML VIAL As Ordered ONE; +ONDA-84 PO; +POTA-151 PO; +ceFAZolin 2 GM/D5W 50 ML IV BAG As Ordered ONE; +fentaNYL 100 MCG/2 ML INJECTION As Ordered ONE
[2023-08-06 14:48] VITALS: TEMP 99.3
[2023-08-06 17:15] VITALS: BP 189/90; O2SAT 95
== END ==
LOC: M IRPRO 14:29
PROVIDERS: ATTEND Internal Medicine Hematology & Oncology
DX: C34.90 Malignant neoplasm of unspecified part of unspecified bronchus or lung (principal)
CPT/HCPCS: 36561; J0690; J3010

== ENCOUNTER → 2023-08-07 | Outpatient (CLI) | payer MEDICARE ==
[~2023-08-07] MED LIST changes: +ISOVUE-370 76% 100ML VIAL As Ordered ONE; -LIDOCAINE 1% MDV 20ML VIAL As Ordered ONE; -LIDOCAINE W/EPINEPHRINE 1% 20ML VIAL As Ordered ONE; -MIDAZOLAM INJ 2MG/2ML VIAL As Ordered ONE; -ceFAZolin 2 GM/D5W 50 ML IV BAG As Ordered ONE; -fentaNYL 100 MCG/2 ML INJECTION As Ordered ONE
== END ==
LOC: M RAD 07:23
PROVIDERS: ATTEND Internal Medicine Hematology & Oncology
DX: C34.90 Malignant neoplasm of unspecified part of unspecified bronchus or lung (principal)
CPT/HCPCS: 70470; Q9967

== ENCOUNTER 2023-09-05 13:15 | Outpatient (RCR) | payer MEDICARE ==
[~2023-09-05 13:15] MED LIST changes: +HYDR1SYP; +HYDR1SYP7 PO; -ISOVUE-370 76% 100ML VIAL As Ordered ONE; +LIDO30CR18 TOP; +MAGICMW SSP
== END 2023-09-07 ==
LOC: M ONCR 13:15
PROVIDERS: ATTEND General Practice
DX: Z51.0 Encounter for antineoplastic radiation therapy (principal); C34.2 Malignant neoplasm of middle lobe, bronchus or lung

== ENCOUNTER → 2023-09-15 | Outpatient (CLI) | payer MEDICARE ==
[~2023-09-15] MED LIST changes: +ANUS2.5C2 TOP; +HALO0.052 TOP; +MORP1SOL4 PO; +NUPE10OI TOP; +POTA-298 PO; +TOPR25TA PO
== END ==
LOC: M EKG 14:49
PROVIDERS: ATTEND General Practice
DX: C34.2 Malignant neoplasm of middle lobe, bronchus or lung (principal)

== ENCOUNTER 2023-10-07 13:16 | Outpatient (RCR) | payer MEDICARE ==
[~2023-10-07 13:16] MED LIST changes: -ALBU8.5H; +ALBU8.5H INH; +POTA20LI16 PO
[2023-10-08] MEDS ORDERED: HYDR-3490 PO (19:44)
[2023-10-08] MEDS ORDERED: RA K500C PO (19:44)
[2023-10-09] MEDS ORDERED: PROCTO-MED TOP (12:20)
[2023-10-09] MEDS ORDERED: HALO0.052 TOP (12:20)
[2023-10-09] MEDS ORDERED: ANUS2.5C2 TOP (12:44)
[2023-10-09] MEDS ORDERED: MAGN400T2 PO (12:48)
[2023-10-09] MEDS ORDERED: METO1TAB32 PO (12:49)
[2023-10-09] MEDS ORDERED: MORP10SO2 PO (13:00)
[2023-10-09] MEDS ORDERED: ONDA-84 PO (13:00)
[2023-10-09] MEDS ORDERED: POTA20LI16 PO (13:05)
== END 2023-10-08 ==
LOC: M ONCR 13:16
PROVIDERS: ATTEND General Practice
DX: Z51.0 Encounter for antineoplastic radiation therapy (principal); C34.2 Malignant neoplasm of middle lobe, bronchus or lung; C78.1 Secondary malignant neoplasm of mediastinum

== ENCOUNTER 2023-10-08 15:57 | Inpatient (IN) | payer MEDICARE ==
[~2023-10-08] VITALS: Ht 162.6 cm; Wt 55.6 kg
[2023-10-08 16:31] LABS: BASO % 0.4 % (0.0-1.0); HEMATOCRIT 24.2 % (36.0-47.0); HEMOGLOBIN 8.2 g/dl (12.0-15.5); LYMPH # 0.4 10^3/uL (1.5-5.0); LYMPH % 15.4 % (24.0-44.0); MEAN CORPUSCULAR HEMOGLOBIN 25.5 pg (27.0-33.0); MEAN CORPUSCULAR HGB CONC 33.9 g/dl (32.0-36.5); MEAN CORPUSCULAR VOLUME 75.4 fl (80.0-96.0); MONO # 0.3 10^3/uL (0.0-0.8); MONO % 12.6 % (2.0-8.0); NEUTROPHILS # 1.7 10^3/uL (1.5-8.5); PLATELET COUNT, AUTOMATED 265 10^3/uL (150-450); RED BLOOD COUNT 3.21 10^6/uL (4.00-5.40); WHITE BLOOD COUNT 2.5 10^3/uL (4.0-10.0)
[2023-10-08 16:43] LABS: INR 1.17; PARTIAL THROMBOPLASTIN TIME 26.3 SECONDS (24.8-34.2); PROTHROMBIN TIME 14.5 SECONDS (12.5-14.5)
[2023-10-08] MEDS: NS 1,000 ML IV SCH (16:49)
[2023-10-08] MEDS: PIPERACILLIN/TAZOBACTAM SOD 4.5 GM in D5W MINI-BAG PLUS 50 ML IV ONE (16:55)
[2023-10-08 17:03] LABS: CPK CREATINE PHOSPHOKINASE 17 U/L (34-145)
[2023-10-08 17:10] LABS: ALBUMIN 3.3 G/DL (3.2-5.2); ALKALINE PHOSPHATASE 123 U/L (46-116); ALT/SGPT 22 U/L (7.0-40); AST/SGOT 20 U/L (<34); BILIRUBIN,DIRECT 0.2 MG/DL (<0.4); BILIRUBIN,TOTAL 0.6 MG/DL (0.3-1.2); BLOOD UREA NITROGEN 15 MG/DL (9-23); CALCIUM LEVEL 8.8 MG/DL (8.3-10.6); CARBON DIOXIDE LEVEL 28 MMOL/L (20-31); CHLORIDE LEVEL 93 MMOL/L (98-107); CK-MB VALUE MASS < 1.0 NG/ML (<3.6); CREATININE FOR GFR 0.65 MG/DL (0.55-1.30); FREE T4 0.91 NG/DL (0.89-1.76); GLOMERULAR FILTRATION RATE > 60.0 (>45); GLUCOSE, FASTING 114 MG/DL (74-106); MAGNESIUM LEVEL 1.6 MG/DL (1.8-2.4); MB/CK RELATIVE INDEX 5.88 (< OR =4); PHOSPHORUS LEVEL 1.2 MG/DL (2.4-5.1); POTASSIUM SERUM 2.7 MMOL/L (3.5-5.1); SODIUM LEVEL 132 MMOL/L (136-145); THYROID STIMULATING HORMONE 4.926 uIU/ML (0.55-4.78); TOTAL PROTEIN 6.3 G/DL (5.7-8.2)
[2023-10-08] MEDS: KCL 10MEQ/100ML SWI (KRUN) 10 MEQ in IV 1 EA IV ONE (17:33)
[2023-10-08] MEDS: NEUTRA-PHOS 1.5 GM PACKET PO ONE (17:38)
[2023-10-08 18:05] LABS: CK-MB VALUE MASS < 1.0 NG/ML (<3.6)
[2023-10-08 18:09] LABS: CPK CREATINE PHOSPHOKINASE 31 U/L (34-145); MB/CK RELATIVE INDEX 3.22 (< OR =4)
[2023-10-08] MEDS: LIDOCAINE 4% CREAM 5GM (LMX4) TOP ONE (18:11)
[2023-10-08] MEDS: MAG SULF 1GM/100ML (MAG RUN) 1 GM in IV 1 EA IV ONE (18:32)
[2023-10-08] MEDS ORDERED: MAALOX 30 ML SUSP *UDC PO PRN (19:25)
[2023-10-08] MEDS ORDERED: RA K500C PO (19:44)
[2023-10-08] MEDS ORDERED: HYDR-3490 PO (19:44)
[2023-10-08] MEDS ORDERED: HOME MED LIST COMPLETE! XX SCH (19:50)
[2023-10-08] MEDS: LR 1,000 ML IV SCH (19:51)
[2023-10-08] MEDS ORDERED: MOM 30ML SUSPENSION UDC PO PRN (20:00)
[2023-10-08 20:54] LABS: VENOUS BASE EXCESS 6.8 (-2.0-2.0); VENOUS HCO3 29.1 MMOL/L (23.0-27.0); VENOUS O2 SATURATION 71.7 % (60.0-80.0); VENOUS PARTIAL PRESSURE CO2 32.6 mmHg (38.0-50.0); VENOUS PARTIAL PRESSURE O2 36.1 mmHg (30.0-50.0); VENOUS PH 7.569 UNITS (7.330-7.430); VENOUS STANDARD HCO3 30.2 MMOL/L; VENOUS TOTAL CO2 30.1 MMOL/L (24.0-28.0)
[2023-10-08 21:48] VITALS: BP 146/59; TEMP 97.7; O2SAT 99
[2023-10-08] MEDS: PANTOPRAZOLE 40MG VIAL IV SCH (22:52)
[2023-10-08 22:57] LABS: BLOOD UREA NITROGEN 13 MG/DL (9-23); CALCIUM LEVEL 8.2 MG/DL (8.3-10.6); CARBON DIOXIDE LEVEL 31 MMOL/L (20-31); CHLORIDE LEVEL 96 MMOL/L (98-107); CREATININE FOR GFR 0.58 MG/DL (0.55-1.30); GLOMERULAR FILTRATION RATE > 60.0 (>45); GLUCOSE, FASTING 99 MG/DL (74-106); PHOSPHORUS LEVEL 2.6 MG/DL (2.4-5.1); POTASSIUM SERUM 2.6 MMOL/L (3.5-5.1); SODIUM LEVEL 135 MMOL/L (136-145)
[2023-10-08] MEDS: KCL 40MEQ in NS 1000ML 1,000 ML IV SCH (23:32)
[2023-10-09] VITALS (21 sets, daily range): BP systolic 103–136; BP diastolic 55–67; TEMP 97–97.9; O2SAT 91–99
[2023-10-09] MEDS: KCL 10MEQ/100ML SWI (KRUN) 10 MEQ in IV 1 EA IV SCH (00:19)
[2023-10-09] MEDS: SODIUM CHLORIDE 0.9% INJ 10 ML SYR IV PRN (01:43)
[2023-10-09] MEDS ORDERED: SODIUM CHLORIDE 0.9% INJ 10 ML SYR IV PRN (03:40)
[2023-10-09 06:29] LABS: HEMATOCRIT 22.8 % (36.0-47.0); HEMOGLOBIN 7.5 g/dl (12.0-15.5); MEAN CORPUSCULAR HEMOGLOBIN 25.6 pg (27.0-33.0); MEAN CORPUSCULAR HGB CONC 32.9 g/dl (32.0-36.5); MEAN CORPUSCULAR VOLUME 77.8 fl (80.0-96.0); PLATELET COUNT, AUTOMATED 181 10^3/uL (150-450); RED BLOOD COUNT 2.93 10^6/uL (4.00-5.40); WHITE BLOOD COUNT 1.8 10^3/uL (4.0-10.0)
[2023-10-09 07:14] LABS: ALBUMIN 2.6 G/DL (3.2-5.2); ALKALINE PHOSPHATASE 101 U/L (46-116); ALT/SGPT 14 U/L (7.0-40); AST/SGOT 16 U/L (<34); BILIRUBIN,TOTAL 0.4 MG/DL (0.3-1.2); BLOOD UREA NITROGEN 10 MG/DL (9-23); CALCIUM LEVEL 7.9 MG/DL (8.3-10.6); CARBON DIOXIDE LEVEL 26 MMOL/L (20-31); CHLORIDE LEVEL 103 MMOL/L (98-107); CREATININE FOR GFR 0.49 MG/DL (0.55-1.30); GLOMERULAR FILTRATION RATE > 60.0 (>45); GLUCOSE, FASTING 90 MG/DL (74-106); MAGNESIUM LEVEL 1.8 MG/DL (1.8-2.4); PHOSPHORUS LEVEL 2.6 MG/DL (2.4-5.1); POTASSIUM SERUM 3.2 MMOL/L (3.5-5.1); SODIUM LEVEL 136 MMOL/L (136-145); TOTAL PROTEIN 5.2 G/DL (5.7-8.2)
[2023-10-09] MEDS: HEPARIN SOD (PORCINE) 5000UNITS/ML 1ML VIAL/SYRINGE SC SCH (08:53)
[2023-10-09] MEDS ORDERED: MORPHINE SULFATE ORAL SOLN 10 MG/5 ML UD PO PRN (10:55)
[2023-10-09] MEDS ORDERED: ONDANSETRON 4MG 2ML VIAL IV PRN (10:55)
[2023-10-09] MEDS ORDERED: HALO0.052 TOP (12:20)
[2023-10-09] MEDS ORDERED: PROCTO-MED TOP (12:20)
[2023-10-09] MEDS: POTASSIUM CHLORIDE 10% LIQ 20MEQ/15ML UDC PO SCH (12:38)
[2023-10-09] MEDS ORDERED: ANUS2.5C2 TOP (12:44)
[2023-10-09] MEDS ORDERED: MAGN400T2 PO (12:48)
[2023-10-09] MEDS ORDERED: METO1TAB32 PO (12:49)
[2023-10-09] MEDS ORDERED: ONDA-84 PO (13:00)
[2023-10-09] MEDS ORDERED: MAGIC MOUTHWASH 5ML ORAL SYRINGE SS PRN (13:00)
[2023-10-09] MEDS ORDERED: MORP10SO2 PO (13:00)
[2023-10-09] MEDS ORDERED: POTA20LI16 PO (13:05)
[2023-10-09] MEDS: SODIUM CHLORIDE 0.9% INJ 10 ML SYR IV SCH (13:25)
[2023-10-09] MEDS: MAGNESIUM OXIDE 400MG TAB (MAG-OX) PO SCH ×2 (13:33→21:09)
[2023-10-09] MEDS: MECLIZINE 25 MG TABLET PO SCH (16:08)
[2023-10-09 18:59] LABS: MEAN CORPUSCULAR HEMOGLOBIN 25.3 pg (27.0-33.0); MEAN CORPUSCULAR HGB CONC 32.2 g/dl (32.0-36.5); MEAN CORPUSCULAR VOLUME 78.7 fl (80.0-96.0); PLATELET COUNT, AUTOMATED 199 10^3/uL (150-450); RED BLOOD COUNT 2.53 10^6/uL (4.00-5.40); WHITE BLOOD COUNT 1.8 10^3/uL (4.0-10.0)
[2023-10-09 19:03] LABS: HEMOGLOBIN 6.4 g/dl (12.0-15.5)
[2023-10-09 19:04] LABS: HEMATOCRIT 19.9 % (36.0-47.0)
[2023-10-09 19:25] LABS: BLOOD UREA NITROGEN 7 MG/DL (9-23); CALCIUM LEVEL 7.8 MG/DL (8.3-10.6); CARBON DIOXIDE LEVEL 24 MMOL/L (20-31); CHLORIDE LEVEL 105 MMOL/L (98-107); CREATININE FOR GFR 0.45 MG/DL (0.55-1.30); GLOMERULAR FILTRATION RATE > 60.0 (>45); GLUCOSE, FASTING 88 MG/DL (74-106); MAGNESIUM LEVEL 1.6 MG/DL (1.8-2.4); POTASSIUM SERUM 3.7 MMOL/L (3.5-5.1); SODIUM LEVEL 136 MMOL/L (136-145)
[2023-10-09] MEDS: SODIUM PHOSPHATE INJ 20 MMOL in D5W 250 ML IV ONE (21:08)
[2023-10-09] MEDS: rOPINIRole 0.25 MG TAB(REQUIP) PO SCH (21:08)
[2023-10-09] MEDS: MORPHINE 10MG/0.5ML ORAL CONCENTRATE SOLUTION U/D SL PRN (23:53)
[2023-10-10] VITALS (34 sets, daily range): BP systolic 112–140; BP diastolic 64–83; TEMP 96.9–97.9; O2SAT 92–100
[2023-10-10 05:37] LABS: BASO % 0.9 % (0.0-1.0); EOS % 1.9 % (0.0-3.0); HEMATOCRIT 33.5 % (36.0-47.0); LYMPH # 0.3 10^3/uL (1.5-5.0); MEAN CORPUSCULAR HEMOGLOBIN 26.9 pg (27.0-33.0); MEAN CORPUSCULAR HGB CONC 32.5 g/dl (32.0-36.5); MEAN CORPUSCULAR VOLUME 82.7 fl (80.0-96.0); MONO # 0.3 10^3/uL (0.0-0.8); MONO % 14.5 % (2.0-8.0); NEUTROPHILS # 1.5 10^3/uL (1.5-8.5); NEUTROPHILS % 67.8 % (36.0-66.0); PLATELET COUNT, AUTOMATED 187 10^3/uL (150-450); RED BLOOD COUNT 4.05 10^6/uL (4.00-5.40); WHITE BLOOD COUNT 2.1 10^3/uL (4.0-10.0)
[2023-10-10 05:49] LABS: HEMOGLOBIN 10.9 g/dl (12.0-15.5)
[2023-10-10 06:00] LABS: BLOOD UREA NITROGEN 5 MG/DL (9-23); CALCIUM LEVEL 7.9 MG/DL (8.3-10.6); CARBON DIOXIDE LEVEL 21 MMOL/L (20-31); CHLORIDE LEVEL 107 MMOL/L (98-107); CREATININE FOR GFR 0.44 MG/DL (0.55-1.30); GLOMERULAR FILTRATION RATE > 60.0 (>45); GLUCOSE, FASTING 88 MG/DL (74-106); MAGNESIUM LEVEL 1.4 MG/DL (1.8-2.4); POTASSIUM SERUM 3.7 MMOL/L (3.5-5.1); SODIUM LEVEL 137 MMOL/L (136-145)
[2023-10-10] MEDS: MAG SULF 1GM/100ML (MAG RUN) 1 GM in IV 1 EA IV ONE (08:04)
[2023-10-10] MEDS ORDERED: LOPERAMIDE 2 MG CAPLET PO PRN (09:25)
[2023-10-10] MEDS: POTASSIUM CHL PWD 20MEQ PACKET PO SCH (09:49)
[2023-10-10] MEDS: ACETAMINOPHEN TAB 650MG DOSE (2X325MG) PO PRN (18:42)
[2023-10-11] VITALS (13 sets, daily range): BP systolic 132–164; BP diastolic 73–85; TEMP 96.8–98.4; O2SAT 90–98
[2023-10-11 07:48] LABS: BASO % 0.4 % (0.0-1.0); EOS # 0.1 10^3/uL (0.0-0.5); EOS % 2.5 % (0.0-3.0); HEMATOCRIT 33.7 % (36.0-47.0); HEMOGLOBIN 11.2 g/dl (12.0-15.5); LYMPH # 0.5 10^3/uL (1.5-5.0); LYMPH % 20.9 % (24.0-44.0); MEAN CORPUSCULAR HEMOGLOBIN 27.1 pg (27.0-33.0); MEAN CORPUSCULAR HGB CONC 33.2 g/dl (32.0-36.5); MEAN CORPUSCULAR VOLUME 81.4 fl (80.0-96.0); MONO # 0.4 10^3/uL (0.0-0.8); MONO % 15.9 % (2.0-8.0); NEUTROPHILS # 1.4 10^3/uL (1.5-8.5); NEUTROPHILS % 59.9 % (36.0-66.0); PLATELET COUNT, AUTOMATED 190 10^3/uL (150-450); RED BLOOD COUNT 4.14 10^6/uL (4.00-5.40); WHITE BLOOD COUNT 2.4 10^3/uL (4.0-10.0)
[2023-10-11 08:14] LABS: BLOOD UREA NITROGEN < 5 MG/DL (9-23); CALCIUM LEVEL 8.1 MG/DL (8.3-10.6); CARBON DIOXIDE LEVEL 24 MMOL/L (20-31); CHLORIDE LEVEL 107 MMOL/L (98-107); CREATININE FOR GFR 0.51 MG/DL (0.55-1.30); GLOMERULAR FILTRATION RATE > 60.0 (>45); GLUCOSE, FASTING 88 MG/DL (74-106); POTASSIUM SERUM 4.2 MMOL/L (3.5-5.1); SODIUM LEVEL 137 MMOL/L (136-145)
[2023-10-11] MEDS ORDERED: POTA20PW PO (08:43)
[2023-10-11] MEDS ORDERED: POTA-151 PO (09:52)
== END 2023-10-11 10:12 | disposition home or self-care (01) | DRG 392 ==
LOC: EDBD 15:57 → M ED 15:57 → M ED INP 20:00 → M PCU 21:46
PROVIDERS: ADMIT Family Medicine; ATTEND Internal Medicine Nephrology
PROC: 30233N1 Transfusion of Nonautologous Red Blood Cells into Peripheral Vein, Percutaneous Approach (ICD-10-PCS; principal; 2023-10-09)
DX: K21.00 Gastro-esophageal reflux disease with esophagitis, without bleeding (principal); C34.91 Malignant neoplasm of unspecified part of right bronchus or lung; E87.6 Hypokalemia; E83.42 Hypomagnesemia; E83.39 Other disorders of phosphorus metabolism; E86.0 Dehydration; E78.5 Hyperlipidemia, unspecified; G25.81 Restless legs syndrome; D64.81 Anemia due to antineoplastic chemotherapy; I10 Essential (primary) hypertension; R19.7 Diarrhea, unspecified; D70.1 Agranulocytosis secondary to cancer chemotherapy; J44.9 Chronic obstructive pulmonary disease, unspecified; R41.82 Altered mental status, unspecified; Z79.69 Long term (current) use of other immunomodulators and immunosuppressants; Z79.899 Other long term (current) drug therapy; Z88.8 Allergy status to other drugs, medicaments and biological substances; Z87.442 Personal history of urinary calculi; Z92.3 Personal history of irradiation

== ENCOUNTER 2023-10-10 13:37 | Outpatient (RCR) | payer MEDICARE ==
[~2023-10-10 13:37] MED LIST changes: +HYDR-3490 PO; +METO1TAB32 PO; +MORP10SO2 PO; +PROCTO-MED TOP; +RA K500C PO
[2023-10-11] MEDS ORDERED: POTA20PW PO (08:43)
[2023-10-11] MEDS ORDERED: POTA-151 PO (09:52)
[2023-10-15] MEDS ORDERED: POTA10CA70 PO (13:45)
[2023-11-17] MEDS ORDERED: FOLI1TAB11 PO (13:58)
[2023-11-17] MEDS ORDERED: GABA-1171 PO (13:58)
[2023-11-17] MEDS ORDERED: DEXA4TA PO (14:05)
[2023-11-17] MEDS ORDERED: BACT800T5 PO (18:11)
== END 2023-11-08 ==
LOC: M ONCR 13:37
PROVIDERS: ATTEND General Practice
DX: Z51.0 Encounter for antineoplastic radiation therapy (principal); C34.2 Malignant neoplasm of middle lobe, bronchus or lung

== ENCOUNTER → 2023-10-31 | Outpatient (CLI) | payer MEDICARE ==
[~2023-10-31] MED LIST changes: +BACT800T5 PO; +DEXA4TA PO; +FOLI1TAB11 PO; +GABA-1171 PO; +METH-855 PO; +MORP15TASA PO; +MORP1SOL PO; +POTA10CA70 PO; +POTA20PW PO
== END ==
LOC: M ONCR 13:21
PROVIDERS: ATTEND General Practice
DX: C34.90 Malignant neoplasm of unspecified part of unspecified bronchus or lung (principal); R13.19 Other dysphagia; Z92.21 Personal history of antineoplastic chemotherapy; Z92.3 Personal history of irradiation

== ENCOUNTER → 2023-11-07 | Outpatient (CLI) | payer MEDICARE ==
[~2023-11-07] MED LIST changes: +ISOVUE-370 76% 100ML VIAL As Ordered ONE
== END ==
LOC: M RAD 10:33
PROVIDERS: ATTEND Internal Medicine Hematology & Oncology
DX: C34.90 Malignant neoplasm of unspecified part of unspecified bronchus or lung (principal)
CPT/HCPCS: 71260; Q9967

== ENCOUNTER 2023-11-11 02:12 | Observation (INO) | payer MEDICARE ==
[2023-11-10 14:08] VITALS: BP 131/77; TEMP 97.5; O2SAT 95
[~2023-11-11] VITALS: Ht 162.6 cm; Wt 51.7 kg
[~2023-11-11 02:12] MED LIST changes: -BACT800T5 PO; -DEXA4TA PO; -FOLI1TAB11 PO; -GABA-1171 PO; -ISOVUE-370 76% 100ML VIAL As Ordered ONE; -METH-855 PO; -MORP15TASA PO; -MORP1SOL PO
[2023-11-11] MEDS: HYDROmorphone 2 MG TAB PO STA (06:18)
[2023-11-11] MEDS: PILL CUTTER 1 EACH XX PRN (06:18)
[2023-11-11 06:36] LABS: MEAN CORPUSCULAR HEMOGLOBIN 26.1 pg (27.0-33.0); MEAN CORPUSCULAR VOLUME 84.1 fl (80.0-96.0); PLATELET COUNT, AUTOMATED 589 10^3/uL (150-450); RED BLOOD COUNT 3.45 10^6/uL (4.00-5.40); WHITE BLOOD COUNT 7.5 10^3/uL (4.0-10.0)
[2023-11-11 06:59] LABS: ALBUMIN 2.6 G/DL (3.2-5.2); ALKALINE PHOSPHATASE 152 U/L (46-116); ALT/SGPT 21 U/L (7.0-40); AST/SGOT 18 U/L (<34); BILIRUBIN,TOTAL 0.3 MG/DL (0.3-1.2); BLOOD UREA NITROGEN 17 MG/DL (9-23); CALCIUM LEVEL 9.3 MG/DL (8.3-10.6); CARBON DIOXIDE LEVEL 27 MMOL/L (20-31); CHLORIDE LEVEL 100 MMOL/L (98-107); CREATININE FOR GFR 0.46 MG/DL (0.55-1.30); GLOMERULAR FILTRATION RATE > 60.0 (>45); GLUCOSE, FASTING 101 MG/DL (74-106); SODIUM LEVEL 135 MMOL/L (136-145); TOTAL PROTEIN 6.7 G/DL (5.7-8.2)
[2023-11-11] MEDS: HYDROMORPHONE HCL 0.5 MG/ 0.5 ML SYRINGE IV PRN (07:25)
[2023-11-11] MEDS ORDERED: ISOVUE-370 76% 100ML VIAL As Ordered ONE (08:04)
[2023-11-11] MEDS: POTASSIUM CHLORIDE 10MEQ SR TABLET PO SCH (09:00)
[2023-11-11] MEDS ORDERED: SENOKOT S TAB PO PRN (09:35)
[2023-11-11] MEDS ORDERED: MOM 30ML SUSPENSION UDC PO PRN (09:35)
[2023-11-11] MEDS ORDERED: MIRALAX *UNIT DOSE* 17GM PACKET PO PRN (09:35)
[2023-11-11] MEDS ORDERED: HYDROMORPHONE HCL 0.5 MG/ 0.5 ML SYRINGE IV PRN (09:35)
[2023-11-11] MEDS ORDERED: NALOXONE INJ 0.4MG/1ML VIAL IV PRN (09:35)
[2023-11-11] MEDS ORDERED: POTA10CA70 PO (09:42)
[2023-11-11] MEDS ORDERED: HOME MED LIST COMPLETE! XX SCH ×2 (09:45)
[2023-11-11] MEDS: KETOROLAC 30 MG/ML 1ML VIAL IV ONE (10:55)
[2023-11-11] MEDS: NS 1,000 ML IV SCH (10:55)
[2023-11-11] MEDS ORDERED: ALBUTEROL 90 MCG/ACT 8GM HFA INHALER INH PRN (11:00)
[2023-11-11] MEDS ORDERED: MORPHINE SULFATE ORAL SOLN 10 MG/5 ML UD PO PRN (11:00)
[2023-11-11] MEDS ORDERED: MORPHINE 10MG/0.5ML ORAL CONCENTRATE SOLUTION U/D SL PRN (11:45)
[2023-11-11] MEDS: PERCOCET 5MG/325MG TAB PO SCH (11:56)
[2023-11-11] MEDS: METOPROLOL SUCC *XL* 25MG TAB (TopROL *XL*) PO SCH (11:57)
[2023-11-11] MEDS: OMEPRAZOLE 20MG CAP PO SCH (11:58)
[2023-11-11] MEDS: MAGNESIUM OXIDE 400MG TAB (MAG-OX) PO SCH (11:58)
[2023-11-11] MEDS: DICLOFENAC EPOLAMINE 1.3% PATCH TOP SCH (11:59)
[2023-11-11] MEDS: MECLIZINE 25 MG TABLET PO PRN (11:59)
[2023-11-11] MEDS: MORPHINE 10MG/0.5ML ORAL CONCENTRATE SOLUTION U/D SL PRN (15:12)
[2023-11-11] MEDS: KETOROLAC 30 MG/ML 1ML VIAL IV SCH (16:18)
[2023-11-11] MEDS: MORPHINE 4 MG/ML 1ML VIAL IV PRN (17:01)
[2023-11-11] MEDS: LOSARTAN 25 MG TAB PO SCH (20:51)
[2023-11-11] MEDS: rOPINIRole 1MG TAB PO SCH (20:51)
[2023-11-11] MEDS: ATORVASTATIN 20 MG TAB PO SCH (20:51)
[2023-11-11 21:10] VITALS: BP 146/98; TEMP 97.5; O2SAT 98
[2023-11-11 21:51] VITALS: BP 143/96; TEMP 97.7; O2SAT 97
[2023-11-11] MEDS: ONDANSETRON 4MG 2ML VIAL IV PRN (23:02)
[2023-11-12 00:34] LABS: ALBUMIN 2.4 G/DL (3.2-5.2); ALKALINE PHOSPHATASE 141 U/L (46-116); ALT/SGPT 19 U/L (7.0-40); AST/SGOT 20 U/L (<34); BILIRUBIN,TOTAL 0.2 MG/DL (0.3-1.2); BLOOD UREA NITROGEN 17 MG/DL (9-23); CALCIUM LEVEL 8.2 MG/DL (8.3-10.6); CARBON DIOXIDE LEVEL 26 MMOL/L (20-31); CHLORIDE LEVEL 103 MMOL/L (98-107); CREATININE FOR GFR 0.51 MG/DL (0.55-1.30); GLOMERULAR FILTRATION RATE > 60.0 (>45); GLUCOSE, FASTING 102 MG/DL (74-106); MAGNESIUM LEVEL 1.9 MG/DL (1.8-2.4); POTASSIUM SERUM 4.1 MMOL/L (3.5-5.1); SODIUM LEVEL 134 MMOL/L (136-145)
[2023-11-12 04:06] VITALS: BP 142/96; TEMP 97.3; O2SAT 93
[2023-11-12 08:44] VITALS: BP 139/92
[2023-11-12] MEDS: METOPROLOL SUCC (TopROL XL) 50MG **XL** TAB PO SCH (08:44)
[2023-11-12] MEDS: ENOXAPARIN 40MG/0.4ML SYRINGE (J1650 PER 10MG) SC SCH (08:45)
[2023-11-12] MEDS: MORPHINE 10MG/0.5ML ORAL CONCENTRATE SOLUTION U/D SL PRN (08:46)
[2023-11-12] MEDS: MORPHINE 15 MG SA TAB PO SCH (10:11)
[2023-11-12] MEDS ORDERED: MORP15TASA PO (10:53)
[2023-11-12] MEDS: FOSFOMYCIN TROMETHAMINE 3 GM POWDER PACKET (MONUROL) PO ONE (11:54)
[2023-11-12 12:00] VITALS: BP 135/72; TEMP 97.9; O2SAT 98
[2023-11-12] MEDS ORDERED: MORP1SOL PO (13:56)
[2023-11-12] MEDS ORDERED: MORP1SOL4 PO (14:05)
[2023-11-12] MEDS ORDERED: METH-855 PO (14:12)
[2023-11-17] MEDS ORDERED: FOLI1TAB11 PO (13:58)
[2023-11-17] MEDS ORDERED: GABA-1171 PO (13:58)
[2023-11-17] MEDS ORDERED: DEXA4TA PO (14:05)
[2023-11-17] MEDS ORDERED: BACT800T5 PO (18:11)
== END 2023-11-12 14:29 | disposition home or self-care (01) ==
LOC: M ED 02:12 → M ED INP 02:13 → M MSPAV 14:09
PROVIDERS: ADMIT General Practice; ATTEND General Practice
DX: G89.3 Neoplasm related pain (acute) (chronic) (principal); C34.2 Malignant neoplasm of middle lobe, bronchus or lung; M54.50 Low back pain, unspecified; C80.0 Disseminated malignant neoplasm, unspecified; R07.9 Chest pain, unspecified; I16.0 Hypertensive urgency; R00.0 Tachycardia, unspecified; N39.0 Urinary tract infection, site not specified; B96.1 Klebsiella pneumoniae [K. pneumoniae] as the cause of diseases classified elsewhere; H83.8X9 Other specified diseases of inner ear, unspecified ear; E78.5 Hyperlipidemia, unspecified; G25.81 Restless legs syndrome; K21.9 Gastro-esophageal reflux disease without esophagitis; J44.9 Chronic obstructive pulmonary disease, unspecified; Z87.442 Personal history of urinary calculi; D64.9 Anemia, unspecified; E87.1 Hypo-osmolality and hyponatremia; E46 Unspecified protein-calorie malnutrition; E88.09 Other disorders of plasma-protein metabolism, not elsewhere classified; Z98.891 History of uterine scar from previous surgery; Z90.89 Acquired absence of other organs; Z98.51 Tubal ligation status; Z80.49 Family history of malignant neoplasm of other genital organs; Z80.0 Family history of malignant neoplasm of digestive organs; Z87.891 Personal history of nicotine dependence; Z92.21 Personal history of antineoplastic chemotherapy; Z92.3 Personal history of irradiation; Z88.8 Allergy status to other drugs, medicaments and biological substances; Z79.899 Other long term (current) drug therapy; Z79.891 Long term (current) use of opiate analgesic
CPT/HCPCS: 36415; 71250; 71275; 74176; 74177; 80053; 81001; 83735; 85027; 87088; 87186; 93005; 96361; 96367; 96372; 96374; 96375; 96376; 97161; 97165; 99285; G0378; J1170; J1650; J1885; J2405; Q9967

== ENCOUNTER → 2023-11-19 | Outpatient (CLI) | payer MEDICARE ==
[~2023-11-19] VITALS: Ht 162.6 cm; Wt 51.9 kg
[~2023-11-19] MED LIST changes: +BACT800T5 PO; +CEFD1CAP9 PO; +DEXA4TA PO; +DOXY100C3 PO; +FENT1PAT25 TD; +FOLI1TAB11 PO; +GABA-1171 PO; +GABA-282 PO; +METH-1164 PO; +METH-855 PO; +METO50TA7 PO; +MOLN200C PO; +MORP15TASA PO; +MORP1SOL PO; +NALO4SPR3; +NIRM1TAB14 PO; +OXYC-517 PO
[2023-11-19 14:02] VITALS: BP 134/77; O2SAT 96
== END ==
LOC: M PAL 13:49
PROVIDERS: ATTEND Family Medicine
DX: G89.3 Neoplasm related pain (acute) (chronic) (principal); G47.01 Insomnia due to medical condition; C34.2 Malignant neoplasm of middle lobe, bronchus or lung; N39.0 Urinary tract infection, site not specified; Z51.5 Encounter for palliative care; Z88.8 Allergy status to other drugs, medicaments and biological substances; Z79.52 Long term (current) use of systemic steroids; Z79.61 Long term (current) use of immunomodulator; Z79.899 Other long term (current) drug therapy; Z87.440 Personal history of urinary (tract) infections; Z92.21 Personal history of antineoplastic chemotherapy; Z92.3 Personal history of irradiation

== ENCOUNTER 2023-11-28 12:57 | Outpatient (RCR) | payer MEDICARE ==
[2023-07-31 08:58] VITALS: BP 151/89; O2SAT 96
[2023-08-06 10:51] LABS: BASO % 0.8 % (0.0-1.0); EOS # 0.1 10^3/uL (0.0-0.5); EOS % 2.8 % (0.0-3.0); HEMATOCRIT 36.6 % (36.0-47.0); HEMOGLOBIN 12.1 g/dl (12.0-15.5); LYMPH # 1.2 10^3/uL (1.5-5.0); LYMPH % 24.8 % (24.0-44.0); MEAN CORPUSCULAR HEMOGLOBIN 26.5 pg (27.0-33.0); MEAN CORPUSCULAR HGB CONC 33.1 g/dl (32.0-36.5); MEAN CORPUSCULAR VOLUME 80.1 fl (80.0-96.0); MONO # 0.4 10^3/uL (0.0-0.8); MONO % 7.9 % (2.0-8.0); NEUTROPHILS # 3.2 10^3/uL (1.5-8.5); NEUTROPHILS % 63.5 % (36.0-66.0); PLATELET COUNT, AUTOMATED 466 10^3/uL (150-450); RED BLOOD COUNT 4.57 10^6/uL (4.00-5.40)
[2023-08-06 11:03] LABS: INR 1.09; PARTIAL THROMBOPLASTIN TIME 28.9 SECONDS (24.8-34.2); PROTHROMBIN TIME 13.7 SECONDS (12.5-14.5)
[2023-08-06 11:33] LABS: ALBUMIN 3.4 G/DL (3.2-5.2); ALKALINE PHOSPHATASE 143 U/L (46-116); ALT/SGPT 19 U/L (7.0-40); AST/SGOT 14 U/L (<34); BILIRUBIN,TOTAL 0.5 MG/DL (0.3-1.2); BLOOD UREA NITROGEN 8 MG/DL (9-23); CARBON DIOXIDE LEVEL 32 MMOL/L (20-31); CHLORIDE LEVEL 100 MMOL/L (98-107); CREATININE FOR GFR 0.64 MG/DL (0.55-1.30); GLOMERULAR FILTRATION RATE > 60.0 (>45); GLUCOSE, FASTING 94 MG/DL (74-106); MAGNESIUM LEVEL 1.7 MG/DL (1.8-2.4); POTASSIUM SERUM 2.9 MMOL/L (3.5-5.1); SODIUM LEVEL 139 MMOL/L (136-145); TOTAL PROTEIN 6.7 G/DL (5.7-8.2)
[2023-08-27] MEDS: SODIUM CHLORIDE 0.9% INJ 10 ML SYR IV PRN (13:41)
[2023-08-27 14:05] VITALS: BP 135/86; O2SAT 99
[2023-08-27 14:07] LABS: BASO % 0.1 % (0.0-1.0); EOS % 0.2 % (0.0-3.0); HEMATOCRIT 33.1 % (36.0-47.0); HEMOGLOBIN 10.8 g/dl (12.0-15.5); LYMPH # 0.6 10^3/uL (1.5-5.0); MEAN CORPUSCULAR HEMOGLOBIN 25.8 pg (27.0-33.0); MEAN CORPUSCULAR HGB CONC 32.6 g/dl (32.0-36.5); MONO # 0.1 10^3/uL (0.0-0.8); NEUTROPHILS # 7.6 10^3/uL (1.5-8.5); NEUTROPHILS % 91.2 % (36.0-66.0); PLATELET COUNT, AUTOMATED 548 10^3/uL (150-450); RED BLOOD COUNT 4.19 10^6/uL (4.00-5.40); WHITE BLOOD COUNT 8.3 10^3/uL (4.0-10.0)
[2023-08-27 14:34] LABS: MAGNESIUM LEVEL 1.9 MG/DL (1.8-2.4)
[2023-08-27 14:36] LABS: ALBUMIN 3.2 G/DL (3.2-5.2); ALKALINE PHOSPHATASE 127 U/L (46-116); ALT/SGPT 10 U/L (7.0-40); AST/SGOT 12 U/L (<34); BILIRUBIN,TOTAL 0.3 MG/DL (0.3-1.2); BLOOD UREA NITROGEN 11 MG/DL (9-23); CALCIUM LEVEL 9.4 MG/DL (8.3-10.6); CARBON DIOXIDE LEVEL 28 MMOL/L (20-31); CHLORIDE LEVEL 104 MMOL/L (98-107); CREATININE FOR GFR 0.55 MG/DL (0.55-1.30); GLOMERULAR FILTRATION RATE > 60.0 (>45); GLUCOSE, FASTING 134 MG/DL (74-106); POTASSIUM SERUM 3.2 MMOL/L (3.5-5.1); SODIUM LEVEL 139 MMOL/L (136-145); TOTAL PROTEIN 7.3 G/DL (5.7-8.2)
[2023-08-27 14:39] LABS: ERYTHROCYTE SEDIMENTATION RATE 84 mm/hr (0-30)
[2023-08-27 14:47] LABS: PERCENT SATURATION 12.6 % (13.2-45.0)
[2023-08-27 14:50] LABS: FERRITIN 132.9 NG/ML (7.3-270.7)
[2023-08-28 08:00] VITALS: BP 130/77; O2SAT 96
[2023-08-28] MEDS: KCL 10MEQ/100ML SWI (KRUN) 100 ML IV ONE (08:23)
[2023-08-28] MEDS: FOSAPREPITANT 150 MG in NS 245 ML IV SCH (09:26)
[2023-08-28] MEDS: diphenhydrAMINE 50MG/ML VIAL IV SCH (09:27)
[2023-08-28] MEDS: FAMOTIDINE 20MG/2ML VIAL IV SCH (09:27)
[2023-08-28] MEDS: PALONOSETRON 0.25MG/5ML VIAL (ALOXI) IV SCH (09:28)
[2023-08-28] MEDS: PACLITAXEL IV SCH (10:27)
[2023-08-28] MEDS: NS IV SCH ×2 (10:27→11:42)
[2023-08-28] MEDS: CARBOPLATIN IV SCH (11:42)
[2023-08-28] MEDS: SODIUM CHLORIDE 0.9% INJ 10 ML SYR IV PRN (12:15)
[2023-09-03 14:22] VITALS: BP 114/76; O2SAT 94
[2023-09-03] MEDS: SODIUM CHLORIDE 0.9% INJ 10 ML SYR IV PRN (14:51)
[2023-09-03 15:02] LABS: BASO % 0.5 % (0.0-1.0); EOS # 0.2 10^3/uL (0.0-0.5); HEMATOCRIT 33.1 % (36.0-47.0); HEMOGLOBIN 10.9 g/dl (12.0-15.5); LYMPH % 12.4 % (24.0-44.0); MEAN CORPUSCULAR HEMOGLOBIN 25.6 pg (27.0-33.0); MEAN CORPUSCULAR HGB CONC 32.9 g/dl (32.0-36.5); MEAN CORPUSCULAR VOLUME 77.9 fl (80.0-96.0); MONO # 0.6 10^3/uL (0.0-0.8); MONO % 7.9 % (2.0-8.0); NEUTROPHILS # 6.1 10^3/uL (1.5-8.5); NEUTROPHILS % 75.7 % (36.0-66.0); PLATELET COUNT, AUTOMATED 485 10^3/uL (150-450); RED BLOOD COUNT 4.25 10^6/uL (4.00-5.40); WHITE BLOOD COUNT 8.1 10^3/uL (4.0-10.0)
[2023-09-03 15:31] LABS: ALKALINE PHOSPHATASE 119 U/L (46-116); ALT/SGPT 13 U/L (7.0-40); AST/SGOT 14 U/L (<34); BILIRUBIN,TOTAL 0.8 MG/DL (0.3-1.2); BLOOD UREA NITROGEN 16 MG/DL (9-23); CALCIUM LEVEL 8.8 MG/DL (8.3-10.6); CARBON DIOXIDE LEVEL 29 MMOL/L (20-31); CHLORIDE LEVEL 95 MMOL/L (98-107); CREATININE FOR GFR 0.88 MG/DL (0.55-1.30); GLOMERULAR FILTRATION RATE > 60.0 (>45); GLUCOSE, FASTING 108 MG/DL (74-106); POTASSIUM SERUM 4.1 MMOL/L (3.5-5.1); SODIUM LEVEL 131 MMOL/L (136-145); TOTAL PROTEIN 7.4 G/DL (5.7-8.2)
[2023-09-04 09:00] VITALS: BP 124/85; O2SAT 95
[2023-09-04] MEDS: FAMOTIDINE 20MG/2ML VIAL IV SCH (09:09)
[2023-09-04] MEDS: FOSAPREPITANT 150 MG in NS 245 ML IV SCH (09:09)
[2023-09-04] MEDS: PALONOSETRON 0.25MG/5ML VIAL (ALOXI) IV SCH (09:09)
[2023-09-04] MEDS: diphenhydrAMINE 50MG/ML VIAL IV SCH (09:15)
[2023-09-04] MEDS: NS IV SCH ×2 (10:10→11:18)
[2023-09-04] MEDS: PACLITAXEL IV SCH (10:10)
[2023-09-04] MEDS: CARBOPLATIN IV SCH (11:18)
[2023-09-04] MEDS: SODIUM CHLORIDE 0.9% INJ 10 ML SYR IV PRN (11:52)
[2023-09-10] MEDS: SODIUM CHLORIDE 0.9% INJ 10 ML SYR IV PRN (14:09)
[2023-09-10 14:29] LABS: BASO % 0.7 % (0.0-1.0); EOS # 0.1 10^3/uL (0.0-0.5); EOS % 2.2 % (0.0-3.0); HEMATOCRIT 29.6 % (36.0-47.0); HEMOGLOBIN 10.1 g/dl (12.0-15.5); LYMPH # 0.3 10^3/uL (1.5-5.0); LYMPH % 11.8 % (24.0-44.0); MEAN CORPUSCULAR HEMOGLOBIN 25.8 pg (27.0-33.0); MEAN CORPUSCULAR HGB CONC 34.1 g/dl (32.0-36.5); MEAN CORPUSCULAR VOLUME 75.7 fl (80.0-96.0); MONO # 0.3 10^3/uL (0.0-0.8); NEUTROPHILS # 2.1 10^3/uL (1.5-8.5); NEUTROPHILS % 75.6 % (36.0-66.0); PLATELET COUNT, AUTOMATED 351 10^3/uL (150-450); RED BLOOD COUNT 3.91 10^6/uL (4.00-5.40); WHITE BLOOD COUNT 2.8 10^3/uL (4.0-10.0)
[2023-09-10 14:49] LABS: ALBUMIN 3.2 G/DL (3.2-5.2); ALKALINE PHOSPHATASE 116 U/L (46-116); ALT/SGPT 53 U/L (7.0-40); AST/SGOT 55 U/L (<34); BILIRUBIN,TOTAL 0.4 MG/DL (0.3-1.2); BLOOD UREA NITROGEN 16 MG/DL (9-23); CARBON DIOXIDE LEVEL 30 MMOL/L (20-31); CHLORIDE LEVEL 88 MMOL/L (98-107); CREATININE FOR GFR 0.92 MG/DL (0.55-1.30); GLOMERULAR FILTRATION RATE > 60.0 (>45); GLUCOSE, FASTING 95 MG/DL (74-106); MAGNESIUM LEVEL 1.9 MG/DL (1.8-2.4); SODIUM LEVEL 128 MMOL/L (136-145); TOTAL PROTEIN 7.5 G/DL (5.7-8.2)
[2023-09-12 08:58] VITALS: BP 125/80; O2SAT 96
[2023-09-12] MEDS: KCL 10MEQ/100ML SWI (KRUN) 100 ML IV ONE (09:22)
[2023-09-12] MEDS: FOSAPREPITANT 150 MG in NS 245 ML IV SCH (10:26)
[2023-09-12] MEDS: PALONOSETRON 0.25MG/5ML VIAL (ALOXI) IV SCH (10:26)
[2023-09-12] MEDS: diphenhydrAMINE 50MG/ML VIAL IV SCH (10:27)
[2023-09-12] MEDS: FAMOTIDINE 20MG/2ML VIAL IV SCH (10:27)
[2023-09-12] MEDS: NS IV SCH ×2 (11:27→12:33)
[2023-09-12] MEDS: PACLITAXEL IV SCH (11:27)
[2023-09-12] MEDS: CARBOPLATIN IV SCH (12:33)
[2023-09-12] MEDS: SODIUM CHLORIDE 0.9% INJ 10 ML SYR IV PRN (13:09)
[2023-09-17] MEDS: SODIUM CHLORIDE 0.9% INJ 10 ML SYR IV PRN (12:29)
[2023-09-17 12:41] LABS: BASO % 0.8 % (0.0-1.0); HEMATOCRIT 27.8 % (36.0-47.0); HEMOGLOBIN 9.2 g/dl (12.0-15.5); LYMPH # 0.2 10^3/uL (1.5-5.0); LYMPH % 6.6 % (24.0-44.0); MEAN CORPUSCULAR HEMOGLOBIN 25.2 pg (27.0-33.0); MEAN CORPUSCULAR HGB CONC 33.1 g/dl (32.0-36.5); MEAN CORPUSCULAR VOLUME 76.2 fl (80.0-96.0); MONO # 0.1 10^3/uL (0.0-0.8); MONO % 5.3 % (2.0-8.0); NEUTROPHILS # 2.1 10^3/uL (1.5-8.5); PLATELET COUNT, AUTOMATED 270 10^3/uL (150-450); RED BLOOD COUNT 3.65 10^6/uL (4.00-5.40); WHITE BLOOD COUNT 2.4 10^3/uL (4.0-10.0)
[2023-09-17 13:04] VITALS: BP 107/78; O2SAT 96
[2023-09-17 13:17] LABS: ALBUMIN 2.9 G/DL (3.2-5.2); ALKALINE PHOSPHATASE 107 U/L (46-116); ALT/SGPT 34 U/L (7.0-40); AST/SGOT 26 U/L (<34); BILIRUBIN,TOTAL 0.4 MG/DL (0.3-1.2); BLOOD UREA NITROGEN 15 MG/DL (9-23); CALCIUM LEVEL 8.9 MG/DL (8.3-10.6); CARBON DIOXIDE LEVEL 33 MMOL/L (20-31); CHLORIDE LEVEL 90 MMOL/L (98-107); CREATININE FOR GFR 0.62 MG/DL (0.55-1.30); GLOMERULAR FILTRATION RATE > 60.0 (>45); GLUCOSE, FASTING 144 MG/DL (74-106); MAGNESIUM LEVEL 1.5 MG/DL (1.8-2.4); POTASSIUM SERUM 3.4 MMOL/L (3.5-5.1); SODIUM LEVEL 129 MMOL/L (136-145)
[2023-09-18 09:11] VITALS: BP 98/75; O2SAT 99
[2023-09-18] MEDS: FOSAPREPITANT 150 MG in NS 245 ML IV SCH (09:31)
[2023-09-18] MEDS: PALONOSETRON 0.25MG/5ML VIAL (ALOXI) IV SCH (09:32)
[2023-09-18] MEDS: FAMOTIDINE 20MG/2ML VIAL IV SCH (09:38)
[2023-09-18] MEDS: diphenhydrAMINE 50MG/ML VIAL IV SCH (10:10)
[2023-09-18] MEDS: NS IV SCH ×2 (10:31→11:42)
[2023-09-18] MEDS: PACLITAXEL IV SCH (10:31)
[2023-09-18] MEDS: CARBOPLATIN IV SCH (11:42)
[2023-09-18] MEDS: KCL 10MEQ/100ML SWI (KRUN) 100 ML IV ONE (12:23)
[2023-09-18] MEDS: MAG SULF 1GM/100ML (MAG RUN) 100 ML IV ONE (12:24)
[2023-09-18] MEDS: SODIUM CHLORIDE 0.9% INJ 10 ML SYR IV PRN (13:20)
[2023-09-24] MEDS: SODIUM CHLORIDE 0.9% INJ 10 ML SYR IV PRN (13:22)
[2023-09-24 13:25] VITALS: BP 118/75; O2SAT 97
[2023-09-24 13:44] LABS: BASO % 0.4 % (0.0-1.0); HEMATOCRIT 24.7 % (36.0-47.0); HEMOGLOBIN 8.2 g/dl (12.0-15.5); LYMPH # 0.3 10^3/uL (1.5-5.0); LYMPH % 10.7 % (24.0-44.0); MEAN CORPUSCULAR HEMOGLOBIN 25.4 pg (27.0-33.0); MEAN CORPUSCULAR HGB CONC 33.2 g/dl (32.0-36.5); MEAN CORPUSCULAR VOLUME 76.5 fl (80.0-96.0); MONO # 0.3 10^3/uL (0.0-0.8); MONO % 11.2 % (2.0-8.0); NEUTROPHILS # 1.8 10^3/uL (1.5-8.5); NEUTROPHILS % 76.8 % (36.0-66.0); PLATELET COUNT, AUTOMATED 241 10^3/uL (150-450); RED BLOOD COUNT 3.23 10^6/uL (4.00-5.40); WHITE BLOOD COUNT 2.3 10^3/uL (4.0-10.0)
[2023-09-24 14:05] LABS: ALBUMIN 2.9 G/DL (3.2-5.2); ALKALINE PHOSPHATASE 99 U/L (46-116); ALT/SGPT 22 U/L (7.0-40); AST/SGOT 16 U/L (<34); BILIRUBIN,TOTAL 0.4 MG/DL (0.3-1.2); BLOOD UREA NITROGEN 12 MG/DL (9-23); CALCIUM LEVEL 8.8 MG/DL (8.3-10.6); CARBON DIOXIDE LEVEL 30 MMOL/L (20-31); CHLORIDE LEVEL 92 MMOL/L (98-107); GLOMERULAR FILTRATION RATE > 60.0 (>45); GLUCOSE, FASTING 99 MG/DL (74-106); POTASSIUM SERUM 3.4 MMOL/L (3.5-5.1); SODIUM LEVEL 129 MMOL/L (136-145); TOTAL PROTEIN 6.7 G/DL (5.7-8.2)
[2023-09-25 09:02] VITALS: BP 111/78; O2SAT 98
[2023-09-25] MEDS: KCL 10MEQ/100ML SWI (KRUN) 100 ML IV ONE (09:32)
[2023-09-25] MEDS: MAG SULF 1GM/100ML (MAG RUN) 100 ML IV ONE (09:32)
[2023-09-25] MEDS: FOSAPREPITANT 150 MG in NS 245 ML IV SCH (09:44)
[2023-09-25] MEDS: diphenhydrAMINE 50MG/ML VIAL IV SCH (09:45)
[2023-09-25] MEDS: FAMOTIDINE 20MG/2ML VIAL IV SCH (09:45)
[2023-09-25] MEDS: PALONOSETRON 0.25MG/5ML VIAL (ALOXI) IV SCH (09:46)
[2023-09-25] MEDS: NS IV SCH ×2 (10:39→11:48)
[2023-09-25] MEDS: PACLITAXEL IV SCH (10:39)
[2023-09-25] MEDS: CARBOPLATIN IV SCH (11:48)
[2023-09-25] MEDS: SODIUM CHLORIDE 0.9% INJ 10 ML SYR IV PRN (12:28)
[2023-10-01] MEDS: SODIUM CHLORIDE 0.9% INJ 10 ML SYR IV PRN (13:05)
[2023-10-01 13:19] LABS: BASO % 1.3 % (0.0-1.0); EOS % 1.3 % (0.0-3.0); HEMATOCRIT 24.9 % (36.0-47.0); HEMOGLOBIN 8.2 g/dl (12.0-15.5); LYMPH # 0.3 10^3/uL (1.5-5.0); MEAN CORPUSCULAR HEMOGLOBIN 25.2 pg (27.0-33.0); MEAN CORPUSCULAR HGB CONC 32.9 g/dl (32.0-36.5); MEAN CORPUSCULAR VOLUME 76.4 fl (80.0-96.0); MONO # 0.2 10^3/uL (0.0-0.8); MONO % 7.2 % (2.0-8.0); NEUTROPHILS # 1.8 10^3/uL (1.5-8.5); NEUTROPHILS % 74.5 % (36.0-66.0); PLATELET COUNT, AUTOMATED 234 10^3/uL (150-450); RED BLOOD COUNT 3.26 10^6/uL (4.00-5.40); WHITE BLOOD COUNT 2.4 10^3/uL (4.0-10.0)
[2023-10-01 13:22] VITALS: BP 120/85; O2SAT 99
[2023-10-01 13:56] LABS: ALBUMIN 3.2 G/DL (3.2-5.2); ALKALINE PHOSPHATASE 112 U/L (46-116); ALT/SGPT 14 U/L (7.0-40); AST/SGOT 13 U/L (<34); BILIRUBIN,TOTAL 0.4 MG/DL (0.3-1.2); BLOOD UREA NITROGEN 14 MG/DL (9-23); CARBON DIOXIDE LEVEL 30 MMOL/L (20-31); CHLORIDE LEVEL 99 MMOL/L (98-107); CREATININE FOR GFR 0.57 MG/DL (0.55-1.30); GLOMERULAR FILTRATION RATE > 60.0 (>45); GLUCOSE, FASTING 107 MG/DL (74-106); MAGNESIUM LEVEL 1.6 MG/DL (1.8-2.4); POTASSIUM SERUM 3.5 MMOL/L (3.5-5.1); SODIUM LEVEL 134 MMOL/L (136-145); TOTAL PROTEIN 6.8 G/DL (5.7-8.2)
[2023-10-02 08:50] VITALS: BP 135/85; O2SAT 100
[2023-10-02] MEDS: MAG SULF 1GM/100ML (MAG RUN) 100 ML IV SCH (09:03)
[2023-10-02] MEDS: FAMOTIDINE 20MG/2ML VIAL IV SCH (09:08)
[2023-10-02] MEDS: FOSAPREPITANT 150 MG in NS 245 ML IV SCH (09:08)
[2023-10-02] MEDS: PALONOSETRON 0.25MG/5ML VIAL (ALOXI) IV SCH (09:09)
[2023-10-02] MEDS: diphenhydrAMINE 50MG/ML VIAL IV SCH (09:09)
[2023-10-02] MEDS: PACLITAXEL IV SCH (11:20)
[2023-10-02] MEDS: NS IV SCH ×2 (11:20→12:26)
[2023-10-02] MEDS: CARBOPLATIN IV SCH (12:26)
[2023-10-02] MEDS: SODIUM CHLORIDE 0.9% INJ 10 ML SYR IV PRN (13:01)
[2023-10-15 13:28] VITALS: BP 118/87; O2SAT 99
[2023-11-17 13:11] LABS: BASO % 0.3 % (0.0-1.0); EOS # 0.2 10^3/uL (0.0-0.5); EOS % 2.5 % (0.0-3.0); HEMATOCRIT 23.7 % (36.0-47.0); HEMOGLOBIN 7.5 g/dl (12.0-15.5); LYMPH # 0.6 10^3/uL (1.5-5.0); LYMPH % 8.4 % (24.0-44.0); MEAN CORPUSCULAR HEMOGLOBIN 26.4 pg (27.0-33.0); MEAN CORPUSCULAR HGB CONC 31.6 g/dl (32.0-36.5); MEAN CORPUSCULAR VOLUME 83.5 fl (80.0-96.0); MONO # 0.6 10^3/uL (0.0-0.8); MONO % 7.8 % (2.0-8.0); NEUTROPHILS # 5.8 10^3/uL (1.5-8.5); NEUTROPHILS % 80.9 % (36.0-66.0); PLATELET COUNT, AUTOMATED 478 10^3/uL (150-450); RED BLOOD COUNT 2.84 10^6/uL (4.00-5.40); WHITE BLOOD COUNT 7.2 10^3/uL (4.0-10.0)
[2023-11-17 13:16] VITALS: BP 112/81; O2SAT 96
[2023-11-17 13:48] LABS: ALBUMIN 1.9 G/DL (3.2-5.2); ALKALINE PHOSPHATASE 152 U/L (46-116); ALT/SGPT 58 U/L (7.0-40); AST/SGOT 84 U/L (<34); BILIRUBIN,TOTAL 0.2 MG/DL (0.3-1.2); BLOOD UREA NITROGEN 12 MG/DL (9-23); CALCIUM LEVEL 8.6 MG/DL (8.3-10.6); CARBON DIOXIDE LEVEL 28 MMOL/L (20-31); CHLORIDE LEVEL 102 MMOL/L (98-107); CREATININE FOR GFR 0.43 MG/DL (0.55-1.30); GLOMERULAR FILTRATION RATE > 60.0 (>45); GLUCOSE, FASTING 121 MG/DL (74-106); MAGNESIUM LEVEL 1.8 MG/DL (1.8-2.4); POTASSIUM SERUM 4.1 MMOL/L (3.5-5.1); SODIUM LEVEL 135 MMOL/L (136-145); TOTAL PROTEIN 5.9 G/DL (5.7-8.2)
[2023-11-17 13:56] LABS: CARCINOEMBRYONIC ANTIGEN < 2.0 NG/ML (<2.5)
[2023-11-17 15:44] LABS: APPEARANCE, URINE CLOUDY (CLEAR); BACTERIA, URINE AUTO 1+ (NEGATIVE); BILIRUBIN, URINE AUTO NEGATIVE (NEGATIVE); BLOOD, URINE BLOOD NEGATIVE (NEGATIVE); COLOR, URINE YELLOW (YELLOW); GLUCOSE, URINE (UA) AUTO NEGATIVE (NEGATIVE); KETONE, URINE AUTO NEGATIVE (NEGATIVE); LEUKOCYTE ESTERASE, URINE AUTO 2+ (NEGATIVE); MUCUS, URINE SMALL (NEGATIVE); NITRITE, URINE AUTO NEGATIVE (NEGATIVE); PROTEIN, URINE AUTO 2+ mg/dL (NEGATIVE); RBC, URINE AUTO 5 /HPF (0-3); SPECIFIC GRAVITY URINE AUTO 1.026 (1.002-1.035); SQUAMOUS EPITHELIAL CELL UR AU 0 /HPF (0-6); UROBILINOGEN, URINE AUTO 0.2 mg/dL (0.0-2.0); WBC, URINE AUTO TNTC /HPF (0-3)
[~2023-11-28] VITALS: Ht 162.6 cm; Wt 50.5 kg
[~2023-11-28 12:57] MED LIST changes: +CARBOPLATIN IV SCH; -CEFD1CAP9 PO; -DOXY100C3 PO; +FAMOTIDINE 20MG/2ML VIAL IV SCH; -FENT1PAT25 TD; +FOSAPREPITANT 150 MG in NS 245 ML IV SCH; -GABA-282 PO; -HALO0.052 TOP; +HALO0.056 TOP; +KCL 10MEQ/100ML SWI (KRUN) 100 ML IV ONE; +MAG SULF 1GM/100ML (MAG RUN) 100 ML IV ONE; -METH-1164 PO; -METO50TA7 PO; -MOLN200C PO; -NALO4SPR3; -NIRM1TAB14 PO; +NS IV SCH; -OXYC-517 PO; +PALONOSETRON 0.25MG/5ML VIAL (ALOXI) IV SCH; +SODIUM CHLORIDE 0.9% INJ 10 ML SYR IV PRN; +diphenhydrAMINE 50MG/ML VIAL IV SCH
[2023-11-28] MEDS: CYANOCOBALAMIN 1,000MCG/ML 1ML VIAL IM SCH (13:26)
[2023-11-28 13:33] VITALS: BP 94/68; O2SAT 93
[2023-12-04] MEDS ORDERED: SODIUM CHLORIDE 0.9% INJ 10 ML SYR IV PRN (08:00)
[2023-12-05] MEDS ORDERED: FOSAPREPITANT 150 MG, VIAL 2 BAG 13MM ADAPTER 1 EACH in NS 250 ML IV SCH
[2023-12-05] MEDS ORDERED: PALONOSETRON 0.25MG/5ML VIAL (ALOXI) IV SCH
[2023-12-08] MEDS ORDERED: DOXY100C3 PO (02:42)
[2023-12-08] MEDS ORDERED: GABA-1172 PO (02:42)
[2023-12-08] MEDS ORDERED: NALO4SPR20 (02:42)
[2023-12-08] MEDS ORDERED: METO50TA7 PO (02:42)
[2023-12-08] MEDS ORDERED: METH-1164 PO (02:42)
[2023-12-08] MEDS ORDERED: OXYC-517 PO (02:42)
[2023-12-08] MEDS ORDERED: CEFD1CAP9 PO (02:42)
[2023-12-08] MEDS ORDERED: FENT1PAT25 TD (02:42)
[2023-12-09] MEDS ORDERED: MOLN200C PO (15:00)
[2023-12-09] MEDS ORDERED: MORP15TASA PO (15:00)
[2023-12-09] MEDS ORDERED: MORP1SOL4 PO (15:00)
[2023-12-09] MEDS ORDERED: NIRM1TAB14 PO (16:54)
[2023-12-11] MEDS ORDERED: MECL-86 PO (21:52)
[2023-12-11] MEDS ORDERED: SENN-187 PO (21:52)
[2023-12-11] MEDS ORDERED: MORP-69 PO (21:52)
== END 2024-01-06 | disposition expired ==
LOC: M ONCM 12:57
PROVIDERS: ATTEND Internal Medicine Hematology & Oncology
DX: C34.2 Malignant neoplasm of middle lobe, bronchus or lung (principal); C77.1 Secondary and unspecified malignant neoplasm of intrathoracic lymph nodes; I10 Essential (primary) hypertension; K20.80 Other esophagitis without bleeding; R53.83 Other fatigue; E61.1 Iron deficiency; K64.9 Unspecified hemorrhoids; E87.6 Hypokalemia; E83.42 Hypomagnesemia; R00.0 Tachycardia, unspecified; R21 Rash and other nonspecific skin eruption; Z79.899 Other long term (current) drug therapy; Z87.891 Personal history of nicotine dependence; R11.0 Nausea; R19.7 Diarrhea, unspecified
CPT/HCPCS: 36415; 36591; 80053; 81001; 82378; 82728; 83550; 83735; 85025; 85610; 85652; 85730; 86140; 96366; 96367; 96368; 96372; 96375; 96413; 96417; G0463; J1100; J1200; J1453; J2469; J3420; J3475; J9045; J9267

== ENCOUNTER 2023-12-07 20:23 | Inpatient (IN) | payer MEDICARE ==
[~2023-12-07] VITALS: Ht 162.6 cm; Wt 62.5 kg
[~2023-12-07 20:23] MED LIST changes: -CARBOPLATIN IV SCH; -FAMOTIDINE 20MG/2ML VIAL IV SCH; -FOSAPREPITANT 150 MG in NS 245 ML IV SCH; +HALO0.052 TOP; -HALO0.056 TOP; -KCL 10MEQ/100ML SWI (KRUN) 100 ML IV ONE; -MAG SULF 1GM/100ML (MAG RUN) 100 ML IV ONE; -NS IV SCH; -PALONOSETRON 0.25MG/5ML VIAL (ALOXI) IV SCH; -SODIUM CHLORIDE 0.9% INJ 10 ML SYR IV PRN; -diphenhydrAMINE 50MG/ML VIAL IV SCH
[2023-12-07] MEDS: EMLA CREAM 5GM TUBE (LIDOCAINE/PRILOCAINE) TOP ONE (21:35)
[2023-12-07] MEDS: ONDANSETRON 4MG 2ML VIAL IV ONE (22:16)
[2023-12-07] MEDS: NS 500 ML IV ONE (22:16)
[2023-12-07] MEDS: HYDROMORPHONE HCL 0.5 MG/ 0.5 ML SYRINGE IV PRN (22:22)
[2023-12-07 22:42] LABS: HEMATOCRIT 31.7 % (36.0-47.0); MEAN CORPUSCULAR HEMOGLOBIN 26.8 pg (27.0-33.0); MEAN CORPUSCULAR HGB CONC 31.5 g/dl (32.0-36.5); PLATELET COUNT, AUTOMATED 405 10^3/uL (150-450); RED BLOOD COUNT 3.73 10^6/uL (4.00-5.40); WHITE BLOOD COUNT 13.5 10^3/uL (4.0-10.0)
[2023-12-07 23:08] LABS: LIPASE 18 U/L (12-53)
[2023-12-07 23:11] LABS: ALBUMIN 2.1 G/DL (3.2-5.2); ALKALINE PHOSPHATASE 164 U/L (46-116); ALT/SGPT 28 U/L (7.0-40); AST/SGOT 23 U/L (<34); BILIRUBIN,TOTAL 0.3 MG/DL (0.3-1.2); BLOOD UREA NITROGEN 12 MG/DL (9-23); CALCIUM LEVEL 8.1 MG/DL (8.3-10.6); CARBON DIOXIDE LEVEL 27 MMOL/L (20-31); CHLORIDE LEVEL 101 MMOL/L (98-107); GLOMERULAR FILTRATION RATE > 60.0 (>45); GLUCOSE, FASTING 92 MG/DL (74-106); POTASSIUM SERUM 4.1 MMOL/L (3.5-5.1); SODIUM LEVEL 137 MMOL/L (136-145); TOTAL PROTEIN 5.9 G/DL (5.7-8.2)
[2023-12-07 23:30] LABS: EOSINOPHILS 3 % (0-3); LYMPHOCYTES 8 % (16-44); MONOCYTES 4 % (0-5); NEUTROPHILS 85 % (28-66); PLATELET ESTIMATE NORMAL (NORMAL)
[2023-12-07 23:31] LABS: ANISOCYTOSIS 1+; HYPOCHROMASIA 1+; POLYCHROMASIA 1+
[2023-12-07 23:32] LABS: OVALOCYTES 1+; POIKILOCYTOSIS 1+
[2023-12-08] VITALS (8 sets, daily range): BP systolic 117–149; BP diastolic 59–83; TEMP 96.8–98; O2SAT 94–98
[2023-12-08] MEDS: HYDROMORPHONE HCL 0.5 MG/ 0.5 ML SYRINGE IV PRN ×2 (00:35→04:27)
[2023-12-08] MEDS: NS 500 ML IV ONE (00:35)
[2023-12-08] MEDS ORDERED: ISOVUE-370 76% 100ML VIAL As Ordered ONE (01:25)
[2023-12-08] MEDS ORDERED: HYDROMORPHONE HCL 0.5 MG/ 0.5 ML SYRINGE IV PRN (01:40)
[2023-12-08] MEDS: LEVALBUTEROL 1.25MG 0.5ML CONCENTRATE NEB NEB SCH (02:00)
[2023-12-08] MEDS: METOPROLOL 5 MG/5 ML VIAL IV STA (02:09)
[2023-12-08] MEDS: LR 1,000 ML IV ONE (02:20)
[2023-12-08] MEDS ORDERED: FENT1PAT25 TD (02:42)
[2023-12-08] MEDS ORDERED: GABA-1172 PO (02:42)
[2023-12-08] MEDS ORDERED: METH-1164 PO (02:42)
[2023-12-08] MEDS ORDERED: METO50TA7 PO (02:42)
[2023-12-08] MEDS ORDERED: CEFD1CAP9 PO (02:42)
[2023-12-08] MEDS ORDERED: DOXY100C3 PO (02:42)
[2023-12-08] MEDS ORDERED: OXYC-517 PO (02:42)
[2023-12-08] MEDS ORDERED: NALO4SPR3 (02:42)
[2023-12-08] MEDS ORDERED: HOME MED LIST COMPLETE! XX SCH (02:50)
[2023-12-08 03:35] LABS: PROCALCITONIN 0.21 ng/ml
[2023-12-08] MEDS: cefTRIAXone SOD 1 GM in D5W MINI-BAG PLUS 50 ML IV SCH (05:29)
[2023-12-08] MEDS: methylPREDNISolone 40MG 1ML VIAL IV SCH (05:30)
[2023-12-08] MEDS: REMDESIVIR 200 MG in NS 250 ML IV ONE (06:05)
[2023-12-08] MEDS: METOPROLOL TART 25 MG TABLET PO SCH (06:11)
[2023-12-08] MEDS ORDERED: MORPHINE 30 MG TAB **MSIR PO PRN (09:00)
[2023-12-08] MEDS: ENOXAPARIN 40MG/0.4ML SYRINGE (J1650 PER 10MG) SC SCH (10:44)
[2023-12-08] MEDS: methocarbamoL 500 MG TAB PO SCH (10:44)
[2023-12-08] MEDS: GABAPENTIN 100 MG CAP PO SCH (10:48)
[2023-12-08] MEDS: DOXYCYCLINE HYCLATE 100MG TABLET PO SCH (10:48)
[2023-12-08] MEDS: PANTOPRAZOLE 40MG VIAL IV SCH (10:48)
[2023-12-08] MEDS: MAGNESIUM OXIDE 400MG TAB (MAG-OX) PO SCH (10:48)
[2023-12-08] MEDS: MORPHINE 15 MG SA TAB PO SCH (10:48)
[2023-12-08] MEDS: FENTANYL REMOVAL DOCUMENTATION MISC XX SCH (12:40)
[2023-12-08 13:31] LABS: BASO % 0.1 % (0.0-1.0); EOS % 0.3 % (0.0-3.0); HEMATOCRIT 32.5 % (36.0-47.0); HEMOGLOBIN 10.2 g/dl (12.0-15.5); LYMPH # 0.2 10^3/uL (1.5-5.0); LYMPH % 1.8 % (24.0-44.0); MEAN CORPUSCULAR HEMOGLOBIN 26.4 pg (27.0-33.0); MEAN CORPUSCULAR HGB CONC 31.4 g/dl (32.0-36.5); MEAN CORPUSCULAR VOLUME 84.2 fl (80.0-96.0); MONO # 0.1 10^3/uL (0.0-0.8); MONO % 0.6 % (2.0-8.0); NEUTROPHILS # 9.4 10^3/uL (1.5-8.5); PLATELET COUNT, AUTOMATED 391 10^3/uL (150-450); RED BLOOD COUNT 3.86 10^6/uL (4.00-5.40); WHITE BLOOD COUNT 9.7 10^3/uL (4.0-10.0)
[2023-12-08 13:46] LABS: BLOOD UREA NITROGEN 8 MG/DL (9-23); CALCIUM LEVEL 8.6 MG/DL (8.3-10.6); CARBON DIOXIDE LEVEL 29 MMOL/L (20-31); CHLORIDE LEVEL 103 MMOL/L (98-107); CREATININE FOR GFR 0.41 MG/DL (0.55-1.30); GLOMERULAR FILTRATION RATE > 60.0 (>45); GLUCOSE, FASTING 171 MG/DL (74-106); POTASSIUM SERUM 3.7 MMOL/L (3.5-5.1); SODIUM LEVEL 138 MMOL/L (136-145)
[2023-12-08] MEDS: FOLIC ACID 1MG TAB PO SCH (14:48)
[2023-12-08] MEDS: fentaNYL 50 MCG/HR PATCH TD SCH (14:49)
[2023-12-08] MEDS ORDERED: dexAMETHasone 20MG/5ML VIAL IV SCH (17:00)
[2023-12-08] MEDS: GABAPENTIN 300 MG CAP PO SCH (21:40)
[2023-12-08] MEDS: ATORVASTATIN 20 MG TAB PO SCH (21:41)
[2023-12-08] MEDS: rOPINIRole 1MG TAB PO SCH (21:41)
[2023-12-09] VITALS (9 sets, daily range): BP systolic 118–152; BP diastolic 61–80; TEMP 96.7–97.8; O2SAT 95–99
[2023-12-09] MEDS: REMDESIVIR 100 MG in NS 250 ML IV SCH (05:39)
[2023-12-09] MEDS: dexAMETHasone 20MG/5ML VIAL IV SCH (09:28)
[2023-12-09] MEDS ORDERED: MOLN200C PO (15:00)
[2023-12-09] MEDS ORDERED: MORP15TASA PO (15:00)
[2023-12-09] MEDS ORDERED: MORP1SOL4 PO (15:00)
[2023-12-09] MEDS ORDERED: NIRM1TAB14 PO (16:54)
[2023-12-09] MEDS: MORPHINE 10MG/0.5ML ORAL CONCENTRATE SOLUTION U/D SL PRN (17:48)
== END 2023-12-09 18:20 | disposition home or self-care (01) | DRG 177 ==
LOC: M ED 20:23 → M ED INP 12-08 01:40 → M PCU 12-08 03:40
PROVIDERS: ADMIT Internal Medicine; ATTEND Internal Medicine
PROC: XW033E5 Introduction of Remdesivir Anti-infective into Peripheral Vein, Percutaneous Approach, New Technology Group 5 (ICD-10-PCS; principal; 2023-12-08)
PROC: 3E0333Z Introduction of Anti-inflammatory into Peripheral Vein, Percutaneous Approach (ICD-10-PCS; 2023-12-08)
DX: U07.1 COVID-19 (principal); J12.82 Pneumonia due to coronavirus disease 2019; C34.2 Malignant neoplasm of middle lobe, bronchus or lung; C78.2 Secondary malignant neoplasm of pleura; J44.1 Chronic obstructive pulmonary disease with (acute) exacerbation; E78.5 Hyperlipidemia, unspecified; G62.9 Polyneuropathy, unspecified; K21.9 Gastro-esophageal reflux disease without esophagitis; G25.81 Restless legs syndrome; R53.1 Weakness; J43.9 Emphysema, unspecified; M54.50 Low back pain, unspecified; H83.90 Unspecified disease of inner ear, unspecified ear; R00.0 Tachycardia, unspecified; I10 Essential (primary) hypertension; Z92.21 Personal history of antineoplastic chemotherapy; Z79.899 Other long term (current) drug therapy; Z79.891 Long term (current) use of opiate analgesic; Z92.3 Personal history of irradiation; Z88.8 Allergy status to other drugs, medicaments and biological substances; Z79.2 Long term (current) use of antibiotics; Z79.51 Long term (current) use of inhaled steroids; Z99.81 Dependence on supplemental oxygen; Z87.891 Personal history of nicotine dependence

== ENCOUNTER → 2023-12-10 | Outpatient (REF) ==
[~2023-12-10] MED LIST changes: +CEFD1CAP9 PO; +DOXY100C3 PO; +FENT1PAT25 TD; +GABA-1172 PO; +METH-1164 PO; +METO50TA7 PO; +MOLN200C PO; +MORP-69 PO; +NALO4SPR3; +NIRM1TAB14 PO; +OXYC-517 PO; +SENN-187 PO
[2023-12-10 15:47] LABS: HEPATITIS B SURFACE ANTIGEN NEGATIVE (NEGATIVE)
[2023-12-10 16:00] LABS: HIV SCREEN CENTAUR SOURCE NEGATIVE (NEGATIVE)
== END ==
LOC: M LAB 14:59
PROVIDERS: ATTEND Internal Medicine
DX: Z00.00 Encounter for general adult medical examination without abnormal findings (principal)

== ENCOUNTER 2023-12-11 17:33 | Inpatient (IN) | payer MEDICARE ==
[~2023-12-11] VITALS: Ht 162.6 cm; Wt 50.6 kg
[~2023-12-11 17:33] MED LIST changes: -MORP-69 PO; -SENN-187 PO
[2023-12-11] MEDS: EMLA CREAM 5GM TUBE (LIDOCAINE/PRILOCAINE) TOP ONE (18:21)
[2023-12-11] MEDS: NS 1,000 ML IV ONE (18:45)
[2023-12-11] MEDS: MORPHINE 4 MG/ML 1ML VIAL IV PRN (18:46)
[2023-12-11 19:26] LABS: BASO % 0.2 % (0.0-1.0); EOS # 0.2 10^3/uL (0.0-0.5); EOS % 1.3 % (0.0-3.0); HEMATOCRIT 35.3 % (36.0-47.0); LYMPH # 0.5 10^3/uL (1.5-5.0); LYMPH % 4.2 % (24.0-44.0); MEAN CORPUSCULAR HEMOGLOBIN 26.7 pg (27.0-33.0); MEAN CORPUSCULAR HGB CONC 31.2 g/dl (32.0-36.5); MEAN CORPUSCULAR VOLUME 85.7 fl (80.0-96.0); MONO # 1.1 10^3/uL (0.0-0.8); MONO % 8.2 % (2.0-8.0); NEUTROPHILS # 11.1 10^3/uL (1.5-8.5); NEUTROPHILS % 85.6 % (36.0-66.0); PLATELET COUNT, AUTOMATED 366 10^3/uL (150-450); RED BLOOD COUNT 4.12 10^6/uL (4.00-5.40)
[2023-12-11 19:33] LABS: ALBUMIN 2.5 G/DL (3.2-5.2); ALKALINE PHOSPHATASE 148 U/L (46-116); ALT/SGPT 21 U/L (7.0-40); AST/SGOT 14 U/L (<34); BILIRUBIN,DIRECT 0.2 MG/DL (<0.4); BILIRUBIN,TOTAL 0.5 MG/DL (0.3-1.2); BLOOD UREA NITROGEN 13 MG/DL (9-23); CALCIUM LEVEL 9.2 MG/DL (8.3-10.6); CARBON DIOXIDE LEVEL 28 MMOL/L (20-31); CHLORIDE LEVEL 94 MMOL/L (98-107); CREATININE FOR GFR 0.49 MG/DL (0.55-1.30); GLOMERULAR FILTRATION RATE > 60.0 (>45); GLUCOSE, FASTING 99 MG/DL (74-106); POTASSIUM SERUM 3.9 MMOL/L (3.5-5.1); SODIUM LEVEL 129 MMOL/L (136-145); TOTAL PROTEIN 6.5 G/DL (5.7-8.2)
[2023-12-11 20:03] LABS: FREE T4 0.91 NG/DL (0.89-1.76); THYROID STIMULATING HORMONE 10.502 uIU/ML (0.55-4.78)
[2023-12-11 20:20] LABS: CREATININE,RANDOM URINE 29.6 MG/DL
[2023-12-11 20:35] LABS: OSMOLALITY SERUM 272 MOSM/KG (280-301)
[2023-12-11] MEDS: METOPROLOL TART 25 MG TABLET PO SCH (21:00)
[2023-12-11] MEDS ORDERED: SENN-187 PO (21:52)
[2023-12-11] MEDS ORDERED: MORP-69 PO (21:52)
[2023-12-11] MEDS ORDERED: MECL-86 PO (21:52)
[2023-12-11] MEDS ORDERED: HOME MED LIST COMPLETE! XX SCH (21:55)
[2023-12-11] MEDS: LORazepam 0.5 MG TAB PO STA (22:52)
[2023-12-11] MEDS ORDERED: diphenhydrAMINE 50MG/ML VIAL As Ordered ONE (23:42)
[2023-12-11] MEDS: diphenhydrAMINE 50MG/ML VIAL IV ONE (23:52)
[2023-12-11] MEDS: OLANZapine 5 MG TAB PO ONE (23:52)
[2023-12-12] VITALS (11 sets, daily range): BP systolic 88–140; BP diastolic 56–95; TEMP 97.8–101.6; O2SAT 93–98
[2023-12-12] MEDS ORDERED: MOM 30ML SUSPENSION UDC PO PRN (00:10)
[2023-12-12] MEDS ORDERED: MAALOX 30 ML SUSP *UDC PO PRN (00:10)
[2023-12-12] MEDS: GABAPENTIN 300 MG CAP PO SCH (00:50)
[2023-12-12] MEDS: MECLIZINE 25 MG TABLET PO SCH ×2 (00:50→09:00)
[2023-12-12 01:14] LABS: ALBUMIN 2.2 G/DL (3.2-5.2); ALKALINE PHOSPHATASE 132 U/L (46-116); ALT/SGPT 20 U/L (7.0-40); AST/SGOT 34 U/L (<34); BILIRUBIN,TOTAL 0.4 MG/DL (0.3-1.2); BLOOD UREA NITROGEN 9 MG/DL (9-23); CALCIUM LEVEL 8.2 MG/DL (8.3-10.6); CARBON DIOXIDE LEVEL 24 MMOL/L (20-31); CHLORIDE LEVEL 98 MMOL/L (98-107); CREATININE FOR GFR 0.39 MG/DL (0.55-1.30); GLOMERULAR FILTRATION RATE > 60.0 (>45); GLUCOSE, FASTING 107 MG/DL (74-106); POTASSIUM SERUM 4.2 MMOL/L (3.5-5.1); SODIUM LEVEL 132 MMOL/L (136-145)
[2023-12-12] MEDS: ACETAMINOPHEN *IV* 1,000 MG in IV 1 EA IV ONE (03:03)
[2023-12-12] MEDS ORDERED: FLUID PLACE HOLDER IV SCH (03:10)
[2023-12-12] MEDS ORDERED: VANCOMYCIN HCL IV SCH (03:10)
[2023-12-12] MEDS: oxyCODONE 10 MG CR TAB PO SCH (03:20)
[2023-12-12] MEDS ORDERED: SODIUM CHLORIDE 0.9% INJ 10 ML SYR IV PRN (03:25)
[2023-12-12] MEDS: LR 1,000 ML IV ONE (03:52)
[2023-12-12] MEDS: diphenhydrAMINE 50MG/ML VIAL IV STA (04:00)
[2023-12-12] MEDS: LORazepam 2 MG/ML 1ML VIAL IV STA ×5 (04:00→16:32)
[2023-12-12] MEDS: cefTRIAXone SOD 2 GM in DEXTROSE 5% (D5W) ADV/MINI-BAG 50 ML IV SCH (04:16)
[2023-12-12 04:28] LABS: VENOUS BASE EXCESS 2.3 (-2.0-2.0); VENOUS HCO3 25.8 MMOL/L (23.0-27.0); VENOUS O2 SATURATION 96.7 % (60.0-80.0); VENOUS PARTIAL PRESSURE CO2 35.6 mmHg (38.0-50.0); VENOUS PARTIAL PRESSURE O2 85.6 mmHg (30.0-50.0); VENOUS PH 7.478 UNITS (7.330-7.430); VENOUS STANDARD HCO3 26.6 MMOL/L; VENOUS TOTAL CO2 26.9 MMOL/L (24.0-28.0)
[2023-12-12 04:39] LABS: BASO % 0.2 % (0.0-1.0); EOS % 0.2 % (0.0-3.0); HEMATOCRIT 28.7 % (36.0-47.0); HEMOGLOBIN 9.1 g/dl (12.0-15.5); LYMPH # 0.4 10^3/uL (1.5-5.0); LYMPH % 3.5 % (24.0-44.0); MEAN CORPUSCULAR HEMOGLOBIN 26.5 pg (27.0-33.0); MEAN CORPUSCULAR HGB CONC 31.7 g/dl (32.0-36.5); MEAN CORPUSCULAR VOLUME 83.7 fl (80.0-96.0); MONO # 0.8 10^3/uL (0.0-0.8); MONO % 6.3 % (2.0-8.0); NEUTROPHILS # 10.8 10^3/uL (1.5-8.5); NEUTROPHILS % 89.1 % (36.0-66.0); PLATELET COUNT, AUTOMATED 295 10^3/uL (150-450); RED BLOOD COUNT 3.43 10^6/uL (4.00-5.40); WHITE BLOOD COUNT 12.2 10^3/uL (4.0-10.0)
[2023-12-12 04:46] LABS: ERYTHROCYTE SEDIMENTATION RATE 73 mm/hr (0-30)
[2023-12-12] MEDS: MATE ADAPTER IV SCH ×2 (04:54→13:33)
[2023-12-12] MEDS: NS IV SCH ×2 (04:54→13:33)
[2023-12-12] MEDS: ACYCLOVIR IV SCH ×2 (04:54→13:33)
[2023-12-12] MEDS: AMPICILLIN SOD 2 GM in DEXTROSE 5% (D5W) MINI-BAG PLU 100 ML IV SCH (04:55)
[2023-12-12 05:12] LABS: C REACTIVE PROTEIN QUANTITATIV 19.1 MG/DL (<1.0)
[2023-12-12] MEDS: VANCOMYCIN HCL 1,000 MG, VIAL MATE ADAPTER 1 EACH in D5W 250 ML IV ONE (05:35)
[2023-12-12] MEDS: LEVOTHYROXINE 25MCG TABLET (0.025MG) PO SCH (05:35)
[2023-12-12 05:51] LABS: PROCALCITONIN 0.18 ng/ml
[2023-12-12] MEDS ORDERED: ONDANSETRON 4MG TAB PO SCH (09:00)
[2023-12-12] MEDS: FOLIC ACID 1MG TAB PO SCH (09:00)
[2023-12-12] MEDS: DOCUSATE SODIUM 100MG CAPSULE PO SCH (09:00)
[2023-12-12] MEDS ORDERED: ENOXAPARIN 40MG/0.4ML SYRINGE (J1650 PER 10MG) SC SCH (09:00)
[2023-12-12] MEDS ORDERED: SODIUM CHLORIDE 0.9% INJ 10 ML SYR IV SCH (09:00)
[2023-12-12] MEDS: MAGNESIUM OXIDE 400MG TAB (MAG-OX) PO SCH (09:00)
[2023-12-12] MEDS: LOSARTAN 25 MG TAB PO SCH (09:00)
[2023-12-12] MEDS: methocarbamoL 500 MG TAB PO SCH (09:00)
[2023-12-12 12:55] LABS: COLOR, CSF COLORLESS (COLORLESS); CSF TUBE# CELL CNT TUBE 1
[2023-12-12 12:56] LABS: APPEARANCE, CSF CLEAR (CLEAR)
[2023-12-12 13:16] LABS: CSF TUBE# TP TUBE 3; TOTAL PROTEIN,CSF 26.3 MG/DL (15-45)
[2023-12-12 13:18] LABS: CSF TUBE# GLU TUBE 2
[2023-12-12] MEDS ORDERED: VANCOMYCIN HCL 500 MG in DEXTROSE 5% (D5W) MINI-BAG PLU 100 ML IV SCH (14:00)
[2023-12-12] MEDS: METOPROLOL 5 MG/5 ML VIAL IV STA (14:23)
[2023-12-12] MEDS: MORPHINE 2 MG/ML 1ML VIAL IV PRN ×2 (14:48→18:01)
[2023-12-12] MEDS: OLANZapine INTRAMUSCULAR 10MG VIAL IM ONE (17:38)
[2023-12-12] MEDS: INSULIN LISPRO (NovoLOG) PER UNIT SC SCH (18:00)
[2023-12-12] MEDS ORDERED: PROHANCE 279.3MG/ML 5ML VIAL As Ordered ONE (18:06)
[2023-12-12] MEDS ORDERED: GLUCAGON INJ 1MG VIAL SC PRN (18:45)
[2023-12-12] MEDS ORDERED: DEXTROSE 50% 50ML SYRINGE IV PRN (18:45)
[2023-12-12] MEDS ORDERED: GLUCOSE 4 GM CHEW PO PRN (18:45)
[2023-12-12] MEDS: ATORVASTATIN 20 MG TAB PO SCH (21:00)
[2023-12-12] MEDS: SENNA 8.6 MG TAB (SENOKOT) PO SCH (21:00)
[2023-12-12] MEDS: cefTRIAXone SOD 1 GM in DEXTROSE 5% (D5W) ADV/MINI-BAG 50 ML IV SCH (21:35)
[2023-12-13] MEDS: OLANZapine INTRAMUSCULAR 10MG VIAL IM PRN (02:32)
[2023-12-13] MEDS: METOPROLOL 5 MG/5 ML VIAL IV PRN (02:50)
[2023-12-13 03:57] VITALS: BP 132/79; TEMP 98.1; O2SAT 94
[2023-12-13] MEDS: OLANZapine INTRAMUSCULAR 10MG VIAL IM ONE (05:24)
[2023-12-13 06:01] LABS: HEMATOCRIT 33.8 % (36.0-47.0); HEMOGLOBIN 10.4 g/dl (12.0-15.5); MEAN CORPUSCULAR HEMOGLOBIN 26.2 pg (27.0-33.0); MEAN CORPUSCULAR HGB CONC 30.8 g/dl (32.0-36.5); MEAN CORPUSCULAR VOLUME 85.1 fl (80.0-96.0); PLATELET COUNT, AUTOMATED 375 10^3/uL (150-450); RED BLOOD COUNT 3.97 10^6/uL (4.00-5.40); WHITE BLOOD COUNT 11.1 10^3/uL (4.0-10.0)
[2023-12-13 06:29] LABS: ALBUMIN 2.1 G/DL (3.2-5.2); ALKALINE PHOSPHATASE 129 U/L (46-116); ALT/SGPT 13 U/L (7.0-40); AST/SGOT 10 U/L (<34); BILIRUBIN,TOTAL 0.2 MG/DL (0.3-1.2); BLOOD UREA NITROGEN 14 MG/DL (9-23); CALCIUM LEVEL 8.8 MG/DL (8.3-10.6); CARBON DIOXIDE LEVEL 26 MMOL/L (20-31); CHLORIDE LEVEL 103 MMOL/L (98-107); GLOMERULAR FILTRATION RATE > 60.0 (>45); GLUCOSE, FASTING 139 MG/DL (74-106); POTASSIUM SERUM 3.7 MMOL/L (3.5-5.1); SODIUM LEVEL 139 MMOL/L (136-145); TOTAL PROTEIN 5.9 G/DL (5.7-8.2)
[2023-12-13 07:36] VITALS: BP 137/82; TEMP 98.1; O2SAT 95
[2023-12-13] MEDS: D5W/0.9% SODIUM CHLORIDE 1,000 ML IV SCH (10:24)
[2023-12-13 12:00] VITALS: BP 165/88; TEMP 97.9; O2SAT 96
[2023-12-13 16:00] VITALS: BP 155/80; TEMP 98.5; O2SAT 96
[2023-12-13 19:38] VITALS: BP 152/85; TEMP 98.2; O2SAT 95
[2023-12-13 23:48] VITALS: BP 133/83; TEMP 98; O2SAT 96
[2023-12-14 03:06] VITALS: BP 154/72; TEMP 97.6; O2SAT 96
[2023-12-14 05:45] LABS: HEMATOCRIT 27.1 % (36.0-47.0); MEAN CORPUSCULAR HEMOGLOBIN 26.9 pg (27.0-33.0); MEAN CORPUSCULAR VOLUME 86.9 fl (80.0-96.0); PLATELET COUNT, AUTOMATED 321 10^3/uL (150-450); RED BLOOD COUNT 3.12 10^6/uL (4.00-5.40); WHITE BLOOD COUNT 12.6 10^3/uL (4.0-10.0)
[2023-12-14 05:54] LABS: HEMOGLOBIN 8.4 g/dl (12.0-15.5)
[2023-12-14 06:08] LABS: ALBUMIN 1.8 G/DL (3.2-5.2); ALKALINE PHOSPHATASE 98 U/L (46-116); ALT/SGPT 14 U/L (7.0-40); AST/SGOT 8 U/L (<34); BILIRUBIN,TOTAL 0.2 MG/DL (0.3-1.2); BLOOD UREA NITROGEN 21 MG/DL (9-23); CALCIUM LEVEL 8.2 MG/DL (8.3-10.6); CARBON DIOXIDE LEVEL 26 MMOL/L (20-31); CHLORIDE LEVEL 111 MMOL/L (98-107); GLOMERULAR FILTRATION RATE > 60.0 (>45); GLUCOSE, FASTING 152 MG/DL (74-106); POTASSIUM SERUM 3.8 MMOL/L (3.5-5.1); SODIUM LEVEL 144 MMOL/L (136-145); TOTAL PROTEIN 4.8 G/DL (5.7-8.2)
[2023-12-14 06:30] VITALS: BP 132/82; O2SAT 96
[2023-12-14 07:23] VITALS: BP 147/69; TEMP 96.6; O2SAT 98
[2023-12-14 15:20] VITALS: BP 154/70; TEMP 98.2; O2SAT 97
[2023-12-14 19:31] VITALS: BP 142/78; TEMP 98; O2SAT 96
[2023-12-14 23:00] VITALS: BP 158/88; TEMP 97.5; O2SAT 95
[2023-12-14] MEDS ORDERED: INSULIN LISPRO (NovoLOG) PER UNIT SC SCH (23:05)
[2023-12-15 03:49] VITALS: TEMP 97.8; O2SAT 96
[2023-12-15 05:00] VITALS: BP 163/75
[2023-12-15] MEDS: INSULIN LISPRO (NovoLOG) PER UNIT SC SCH (07:30)
[2023-12-15 07:46] LABS: HEMATOCRIT 31.2 % (36.0-47.0); HEMOGLOBIN 9.8 g/dl (12.0-15.5); MEAN CORPUSCULAR HEMOGLOBIN 27.3 pg (27.0-33.0); MEAN CORPUSCULAR HGB CONC 31.4 g/dl (32.0-36.5); MEAN CORPUSCULAR VOLUME 86.9 fl (80.0-96.0); PLATELET COUNT, AUTOMATED 339 10^3/uL (150-450); RED BLOOD COUNT 3.59 10^6/uL (4.00-5.40); WHITE BLOOD COUNT 13.4 10^3/uL (4.0-10.0)
[2023-12-15 07:52] VITALS: BP 121/81; TEMP 97.2; O2SAT 96
[2023-12-15 08:44] LABS: ALBUMIN 2.1 G/DL (3.2-5.2); ALKALINE PHOSPHATASE 111 U/L (46-116); ALT/SGPT 18 U/L (7.0-40); AST/SGOT 12 U/L (<34); BILIRUBIN,TOTAL 0.2 MG/DL (0.3-1.2); BLOOD UREA NITROGEN 19 MG/DL (9-23); CALCIUM LEVEL 8.8 MG/DL (8.3-10.6); CARBON DIOXIDE LEVEL 26 MMOL/L (20-31); CHLORIDE LEVEL 104 MMOL/L (98-107); CREATININE FOR GFR 0.43 MG/DL (0.55-1.30); GLOMERULAR FILTRATION RATE > 60.0 (>45); GLUCOSE, FASTING 87 MG/DL (74-106); POTASSIUM SERUM 4.3 MMOL/L (3.5-5.1); SODIUM LEVEL 137 MMOL/L (136-145); TOTAL PROTEIN 5.4 G/DL (5.7-8.2)
[2023-12-15 13:58] VITALS: BP 162/97
[2023-12-15] MEDS: LIDOCAINE 5% (LIDODERM) PATCH TD SCH (14:36)
[2023-12-15] MEDS: MORPHINE 2 MG/ML 1ML VIAL IV ONE (15:33)
[2023-12-15 16:00] VITALS: BP 150/80; TEMP 97.5; O2SAT 96
[2023-12-15] MEDS: ACETAMINOPHEN 325 MG TAB PO PRN (18:25)
[2023-12-15] MEDS: MORPHINE 4 MG/ML 1ML VIAL IV ONE (18:42)
[2023-12-15] MEDS ORDERED: NALOXONE INJ 0.4MG/1ML VIAL IV PRN (19:15)
[2023-12-15 20:28] VITALS: BP 170/76; TEMP 97; O2SAT 97
[2023-12-15] MEDS ORDERED: INSULIN LISPRO (NovoLOG) PER UNIT SC SCH (21:00)
[2023-12-15] MEDS: oxyCODONE 20MG CR TAB PO SCH (21:14)
[2023-12-16] VITALS (7 sets, daily range): BP systolic 133–180; BP diastolic 75–96; TEMP 96.9–97.5; O2SAT 94–97
[2023-12-16] MEDS: MORPHINE 2 MG/ML 1ML VIAL IV PRN (00:39)
[2023-12-16 09:44] LABS: HEMATOCRIT 35.3 % (36.0-47.0); HEMOGLOBIN 11.4 g/dl (12.0-15.5); MEAN CORPUSCULAR HEMOGLOBIN 26.9 pg (27.0-33.0); MEAN CORPUSCULAR HGB CONC 32.3 g/dl (32.0-36.5); MEAN CORPUSCULAR VOLUME 83.3 fl (80.0-96.0); PLATELET COUNT, AUTOMATED 325 10^3/uL (150-450); RED BLOOD COUNT 4.24 10^6/uL (4.00-5.40); WHITE BLOOD COUNT 14.1 10^3/uL (4.0-10.0)
[2023-12-16 10:08] LABS: ALBUMIN 2.5 G/DL (3.2-5.2); ALKALINE PHOSPHATASE 128 U/L (46-116); ALT/SGPT 23 U/L (7.0-40); AST/SGOT 16 U/L (<34); BILIRUBIN,TOTAL 0.5 MG/DL (0.3-1.2); BLOOD UREA NITROGEN 12 MG/DL (9-23); CALCIUM LEVEL 8.9 MG/DL (8.3-10.6); CARBON DIOXIDE LEVEL 25 MMOL/L (20-31); CHLORIDE LEVEL 97 MMOL/L (98-107); CREATININE FOR GFR 0.35 MG/DL (0.55-1.30); GLOMERULAR FILTRATION RATE > 60.0 (>45); GLUCOSE, FASTING 80 MG/DL (74-106); SODIUM LEVEL 131 MMOL/L (136-145); TOTAL PROTEIN 6.1 G/DL (5.7-8.2)
[2023-12-17] VITALS: BP 164/95; TEMP 97.5; O2SAT 97
[2023-12-17 04:00] VITALS: BP 140/70; TEMP 97.7; O2SAT 96
[2023-12-17 05:57] LABS: HEMATOCRIT 35.1 % (36.0-47.0); HEMOGLOBIN 11.1 g/dl (12.0-15.5); MEAN CORPUSCULAR HEMOGLOBIN 26.5 pg (27.0-33.0); MEAN CORPUSCULAR HGB CONC 31.6 g/dl (32.0-36.5); MEAN CORPUSCULAR VOLUME 83.8 fl (80.0-96.0); PLATELET COUNT, AUTOMATED 279 10^3/uL (150-450); RED BLOOD COUNT 4.19 10^6/uL (4.00-5.40); WHITE BLOOD COUNT 14.6 10^3/uL (4.0-10.0)
[2023-12-17 06:25] LABS: ALBUMIN 2.5 G/DL (3.2-5.2); ALKALINE PHOSPHATASE 125 U/L (46-116); ALT/SGPT 20 U/L (7.0-40); AST/SGOT 11 U/L (<34); BILIRUBIN,TOTAL 0.5 MG/DL (0.3-1.2); BLOOD UREA NITROGEN 14 MG/DL (9-23); CALCIUM LEVEL 8.8 MG/DL (8.3-10.6); CARBON DIOXIDE LEVEL 26 MMOL/L (20-31); CHLORIDE LEVEL 99 MMOL/L (98-107); CREATININE FOR GFR 0.44 MG/DL (0.55-1.30); GLOMERULAR FILTRATION RATE > 60.0 (>45); GLUCOSE, FASTING 84 MG/DL (74-106); POTASSIUM SERUM 3.9 MMOL/L (3.5-5.1); SODIUM LEVEL 133 MMOL/L (136-145); TOTAL PROTEIN 6.2 G/DL (5.7-8.2)
[2023-12-17 08:00] VITALS: BP 142/81; TEMP 97.5; O2SAT 97
[2023-12-17 12:00] VITALS: BP 135/76; TEMP 97.7; O2SAT 95
[2023-12-17] MEDS: MORPHINE 2 MG/ML 1ML VIAL IV PRN (15:07)
[2023-12-17 20:10] VITALS: BP 140/82; TEMP 97.5; O2SAT 96
[2023-12-18] MEDS: METHOCARBAMOL 1,000 MG/10 ML VIAL IV ONE (02:21)
[2023-12-18 03:30] VITALS: BP 142/88; TEMP 97.3; O2SAT 95
[2023-12-18] MEDS ORDERED: HYDROMORPHONE HCL 0.5 MG/ 0.5 ML SYRINGE IV PRN (03:30)
[2023-12-18] MEDS: HYDROMORPHONE HCL 0.5 MG/ 0.5 ML SYRINGE IV PRN (03:44)
[2023-12-18 06:10] LABS: HEMOGLOBIN 10.9 g/dl (12.0-15.5); MEAN CORPUSCULAR HEMOGLOBIN 26.5 pg (27.0-33.0); MEAN CORPUSCULAR HGB CONC 31.1 g/dl (32.0-36.5); PLATELET COUNT, AUTOMATED 311 10^3/uL (150-450); RED BLOOD COUNT 4.12 10^6/uL (4.00-5.40); WHITE BLOOD COUNT 17.4 10^3/uL (4.0-10.0)
[2023-12-18 06:19] LABS: ALBUMIN 2.6 G/DL (3.2-5.2); ALKALINE PHOSPHATASE 126 U/L (46-116); ALT/SGPT 18 U/L (7.0-40); AST/SGOT 10 U/L (<34); BILIRUBIN,TOTAL 0.5 MG/DL (0.3-1.2); BLOOD UREA NITROGEN 18 MG/DL (9-23); CALCIUM LEVEL 9.2 MG/DL (8.3-10.6); CARBON DIOXIDE LEVEL 24 MMOL/L (20-31); CHLORIDE LEVEL 99 MMOL/L (98-107); CREATININE FOR GFR 0.44 MG/DL (0.55-1.30); GLOMERULAR FILTRATION RATE > 60.0 (>45); GLUCOSE, FASTING 99 MG/DL (74-106); SODIUM LEVEL 133 MMOL/L (136-145); TOTAL PROTEIN 6.4 G/DL (5.7-8.2)
[2023-12-18 08:15] VITALS: O2SAT 91
[2023-12-18] MEDS: MORPHINE 4 MG/ML 1ML VIAL IV PRN (08:15)
[2023-12-18] MEDS: ONDANSETRON 4MG 2ML VIAL IV PRN (08:15)
[2023-12-18] MEDS: ENOXAPARIN 40MG/0.4ML SYRINGE (J1650 PER 10MG) SC SCH (08:20)
[2023-12-18] MEDS: methocarbamoL 500 MG TAB PO PRN (08:21)
[2023-12-18] MEDS: oxyCODONE 15MG CR TAB PO SCH (08:33)
[2023-12-18] MEDS: fentaNYL 25 MCG/HR PATCH TOP SCH (08:34)
[2023-12-18] MEDS: FENTANYL REMOVAL DOCUMENTATION MISC XX SCH (08:43)
[2023-12-18 11:32] VITALS: BP 116/69; TEMP 97.7; O2SAT 97
[2023-12-18] MEDS: FENTANYL REMOVAL DOCUMENTATION MISC XX ONE (12:02)
[2023-12-18] MEDS: NS 1,000 ML IV SCH (15:01)
[2023-12-18] MEDS: oxyCODONE 5MG TAB PO PRN (15:03)
[2023-12-18 19:37] VITALS: BP 116/67; TEMP 97.5; O2SAT 96
[2023-12-18] MEDS: GABAPENTIN 100 MG CAP PO SCH (23:35)
[2023-12-19] MEDS: MORPHINE 10 MG/ML 1ML VIAL IV PRN (01:10)
[2023-12-19 03:33] VITALS: BP 144/82; TEMP 97.3; O2SAT 95
[2023-12-19] MEDS: MORPHINE 4 MG/ML 1ML VIAL IV PRN (04:18)
[2023-12-19 13:28] LABS: BASO % 0.1 % (0.0-1.0); EOS # 0.1 10^3/uL (0.0-0.5); EOS % 1.1 % (0.0-3.0); HEMATOCRIT 33.5 % (36.0-47.0); HEMOGLOBIN 10.4 g/dl (12.0-15.5); LYMPH # 0.1 10^3/uL (1.5-5.0); LYMPH % 1.1 % (24.0-44.0); MEAN CORPUSCULAR HEMOGLOBIN 26.8 pg (27.0-33.0); MEAN CORPUSCULAR VOLUME 86.3 fl (80.0-96.0); MONO # 0.9 10^3/uL (0.0-0.8); MONO % 7.4 % (2.0-8.0); NEUTROPHILS # 10.4 10^3/uL (1.5-8.5); NEUTROPHILS % 89.7 % (36.0-66.0); PLATELET COUNT, AUTOMATED 273 10^3/uL (150-450); RED BLOOD COUNT 3.88 10^6/uL (4.00-5.40); WHITE BLOOD COUNT 11.6 10^3/uL (4.0-10.0)
[2023-12-19 13:50] LABS: ALBUMIN 2.3 G/DL (3.2-5.2); ALKALINE PHOSPHATASE 114 U/L (46-116); ALT/SGPT 16 U/L (7.0-40); AST/SGOT 17 U/L (<34); BILIRUBIN,TOTAL 0.5 MG/DL (0.3-1.2); BLOOD UREA NITROGEN 12 MG/DL (9-23); CALCIUM LEVEL 8.6 MG/DL (8.3-10.6); CARBON DIOXIDE LEVEL 22 MMOL/L (20-31); CHLORIDE LEVEL 103 MMOL/L (98-107); CREATININE FOR GFR 0.38 MG/DL (0.55-1.30); GLOMERULAR FILTRATION RATE > 60.0 (>45); GLUCOSE, FASTING 106 MG/DL (74-106); POTASSIUM SERUM 4.2 MMOL/L (3.5-5.1); SODIUM LEVEL 133 MMOL/L (136-145); TOTAL PROTEIN 5.8 G/DL (5.7-8.2)
[2023-12-19] MEDS: oxyCODONE 20MG CR TAB PO SCH (20:12)
[2023-12-19 20:17] VITALS: BP 136/73; TEMP 97.5; O2SAT 95
[2023-12-20 04:18] VITALS: BP 149/96; TEMP 98.2; O2SAT 94
[2023-12-20 07:22] LABS: BASO % 0.1 % (0.0-1.0); EOS # 0.1 10^3/uL (0.0-0.5); EOS % 0.6 % (0.0-3.0); HEMATOCRIT 29.6 % (36.0-47.0); HEMOGLOBIN 9.3 g/dl (12.0-15.5); LYMPH # 0.2 10^3/uL (1.5-5.0); LYMPH % 1.8 % (24.0-44.0); MEAN CORPUSCULAR HEMOGLOBIN 26.3 pg (27.0-33.0); MEAN CORPUSCULAR HGB CONC 31.4 g/dl (32.0-36.5); MEAN CORPUSCULAR VOLUME 83.6 fl (80.0-96.0); MONO # 0.7 10^3/uL (0.0-0.8); MONO % 6.7 % (2.0-8.0); NEUTROPHILS # 9.7 10^3/uL (1.5-8.5); NEUTROPHILS % 90.4 % (36.0-66.0); PLATELET COUNT, AUTOMATED 243 10^3/uL (150-450); RED BLOOD COUNT 3.54 10^6/uL (4.00-5.40); WHITE BLOOD COUNT 10.7 10^3/uL (4.0-10.0)
[2023-12-20 09:09] LABS: ALBUMIN 2.1 G/DL (3.2-5.2); ALKALINE PHOSPHATASE 116 U/L (46-116); ALT/SGPT 15 U/L (7.0-40); AST/SGOT 14 U/L (<34); BILIRUBIN,TOTAL 0.4 MG/DL (0.3-1.2); BLOOD UREA NITROGEN 9 MG/DL (9-23); CALCIUM LEVEL 8.2 MG/DL (8.3-10.6); CARBON DIOXIDE LEVEL 22 MMOL/L (20-31); CHLORIDE LEVEL 103 MMOL/L (98-107); CREATININE FOR GFR 0.35 MG/DL (0.55-1.30); GLOMERULAR FILTRATION RATE > 60.0 (>45); GLUCOSE, FASTING 128 MG/DL (74-106); MAGNESIUM LEVEL 1.8 MG/DL (1.8-2.4); POTASSIUM SERUM 3.4 MMOL/L (3.5-5.1); SODIUM LEVEL 134 MMOL/L (136-145); TOTAL PROTEIN 5.2 G/DL (5.7-8.2)
[2023-12-20 11:44] VITALS: BP 94/56; TEMP 97.7; O2SAT 94
[2023-12-20] MEDS: SODIUM CHLORIDE 0.9% 1000 ML IV ONE (11:55)
[2023-12-20 12:48] VITALS: BP 110/60
[2023-12-20 20:00] VITALS: BP 148/86; TEMP 98.1; O2SAT 93
[2023-12-21] VITALS (7 sets, daily range): BP systolic 117–160; BP diastolic 66–95; TEMP 97.2–100.5; O2SAT 92–95
[2023-12-21] MEDS: RAMELTEON 8 MG TAB (ROZEREM) PO PRN (02:55)
[2023-12-21 06:32] LABS: BASO % 0.2 % (0.0-1.0); EOS # 0.2 10^3/uL (0.0-0.5); EOS % 1.4 % (0.0-3.0); HEMATOCRIT 29.1 % (36.0-47.0); LYMPH # 0.2 10^3/uL (1.5-5.0); LYMPH % 1.7 % (24.0-44.0); MEAN CORPUSCULAR HEMOGLOBIN 26.8 pg (27.0-33.0); MEAN CORPUSCULAR HGB CONC 30.9 g/dl (32.0-36.5); MEAN CORPUSCULAR VOLUME 86.6 fl (80.0-96.0); MONO # 0.5 10^3/uL (0.0-0.8); MONO % 4.5 % (2.0-8.0); NEUTROPHILS # 9.5 10^3/uL (1.5-8.5); NEUTROPHILS % 91.5 % (36.0-66.0); PLATELET COUNT, AUTOMATED 236 10^3/uL (150-450); RED BLOOD COUNT 3.36 10^6/uL (4.00-5.40); WHITE BLOOD COUNT 10.4 10^3/uL (4.0-10.0)
[2023-12-21 07:03] LABS: BLOOD UREA NITROGEN 6 MG/DL (9-23); CALCIUM LEVEL 8.3 MG/DL (8.3-10.6); CARBON DIOXIDE LEVEL 27 MMOL/L (20-31); CHLORIDE LEVEL 104 MMOL/L (98-107); CREATININE FOR GFR 0.38 MG/DL (0.55-1.30); GLOMERULAR FILTRATION RATE > 60.0 (>45); GLUCOSE, FASTING 103 MG/DL (74-106); MAGNESIUM LEVEL 1.9 MG/DL (1.8-2.4); POTASSIUM SERUM 3.5 MMOL/L (3.5-5.1); SODIUM LEVEL 137 MMOL/L (136-145)
[2023-12-21 21:34] LABS: VENOUS BASE EXCESS 1.8 (-2.0-2.0); VENOUS HCO3 25.9 MMOL/L (23.0-27.0); VENOUS O2 SATURATION 74.2 % (60.0-80.0); VENOUS PARTIAL PRESSURE CO2 38.6 mmHg (38.0-50.0); VENOUS PARTIAL PRESSURE O2 40.3 mmHg (30.0-50.0); VENOUS PH 7.445 UNITS (7.330-7.430); VENOUS STANDARD HCO3 25.7 MMOL/L; VENOUS TOTAL CO2 27.1 MMOL/L (24.0-28.0)
[2023-12-21 21:38] LABS: BASO % 0.3 % (0.0-1.0); EOS # 0.1 10^3/uL (0.0-0.5); EOS % 0.6 % (0.0-3.0); HEMATOCRIT 29.2 % (36.0-47.0); HEMOGLOBIN 9.3 g/dl (12.0-15.5); LYMPH # 0.2 10^3/uL (1.5-5.0); MEAN CORPUSCULAR HGB CONC 31.8 g/dl (32.0-36.5); MEAN CORPUSCULAR VOLUME 84.6 fl (80.0-96.0); MONO # 0.5 10^3/uL (0.0-0.8); MONO % 4.7 % (2.0-8.0); NEUTROPHILS # 9.1 10^3/uL (1.5-8.5); NEUTROPHILS % 91.7 % (36.0-66.0); PLATELET COUNT, AUTOMATED 237 10^3/uL (150-450); RED BLOOD COUNT 3.45 10^6/uL (4.00-5.40)
[2023-12-21 21:54] LABS: INR 1.29; PARTIAL THROMBOPLASTIN TIME 27.1 SECONDS (24.8-34.2); PROTHROMBIN TIME 15.7 SECONDS (12.5-14.5)
[2023-12-21 22:01] LABS: ALKALINE PHOSPHATASE 133 U/L (46-116); ALT/SGPT 15 U/L (7.0-40); AST/SGOT 10 U/L (<34); BILIRUBIN,DIRECT 0.1 MG/DL (<0.4); BILIRUBIN,TOTAL 0.3 MG/DL (0.3-1.2); BLOOD UREA NITROGEN 6 MG/DL (9-23); CALCIUM LEVEL 8.5 MG/DL (8.3-10.6); CARBON DIOXIDE LEVEL 28 MMOL/L (20-31); CHLORIDE LEVEL 102 MMOL/L (98-107); CREATININE FOR GFR 0.35 MG/DL (0.55-1.30); GLOMERULAR FILTRATION RATE > 60.0 (>45); GLUCOSE, FASTING 106 MG/DL (74-106); MAGNESIUM LEVEL 1.7 MG/DL (1.8-2.4); POTASSIUM SERUM 3.1 MMOL/L (3.5-5.1); SODIUM LEVEL 136 MMOL/L (136-145); TOTAL PROTEIN 5.3 G/DL (5.7-8.2)
[2023-12-22] MEDS: KCL 10MEQ/100ML SWI (KRUN) 10 MEQ in IV 1 EA IV SCH (00:54)
[2023-12-22 01:01] VITALS: BP 133/71; TEMP 98.1; O2SAT 93
[2023-12-22 04:25] VITALS: BP 169/93; TEMP 100.4; O2SAT 95
[2023-12-22 06:29] LABS: BASO % 0.1 % (0.0-1.0); EOS # 0.1 10^3/uL (0.0-0.5); EOS % 0.7 % (0.0-3.0); HEMATOCRIT 29.4 % (36.0-47.0); HEMOGLOBIN 9.2 g/dl (12.0-15.5); LYMPH # 0.2 10^3/uL (1.5-5.0); LYMPH % 2.2 % (24.0-44.0); MEAN CORPUSCULAR HEMOGLOBIN 26.8 pg (27.0-33.0); MEAN CORPUSCULAR HGB CONC 31.3 g/dl (32.0-36.5); MEAN CORPUSCULAR VOLUME 85.7 fl (80.0-96.0); MONO # 0.5 10^3/uL (0.0-0.8); MONO % 4.7 % (2.0-8.0); NEUTROPHILS % 91.7 % (36.0-66.0); PLATELET COUNT, AUTOMATED 266 10^3/uL (150-450); RED BLOOD COUNT 3.43 10^6/uL (4.00-5.40); WHITE BLOOD COUNT 9.8 10^3/uL (4.0-10.0)
[2023-12-22 06:46] LABS: ALKALINE PHOSPHATASE 137 U/L (46-116); ALT/SGPT 15 U/L (7.0-40); AST/SGOT 12 U/L (<34); BILIRUBIN,DIRECT 0.2 MG/DL (<0.4); BILIRUBIN,TOTAL 0.4 MG/DL (0.3-1.2); BLOOD UREA NITROGEN 7 MG/DL (9-23); CALCIUM LEVEL 8.3 MG/DL (8.3-10.6); CARBON DIOXIDE LEVEL 27 MMOL/L (20-31); CHLORIDE LEVEL 102 MMOL/L (98-107); CREATININE FOR GFR 0.34 MG/DL (0.55-1.30); GLOMERULAR FILTRATION RATE > 60.0 (>45); GLUCOSE, FASTING 87 MG/DL (74-106); MAGNESIUM LEVEL 1.9 MG/DL (1.8-2.4); POTASSIUM SERUM 3.4 MMOL/L (3.5-5.1); SODIUM LEVEL 136 MMOL/L (136-145); TOTAL PROTEIN 5.4 G/DL (5.7-8.2)
[2023-12-22 06:57] LABS: PROCALCITONIN 0.13 ng/ml
[2023-12-22 07:55] VITALS: BP 159/92; TEMP 100.2; O2SAT 91
[2023-12-22 12:00] VITALS: BP 133/76; TEMP 99.6; O2SAT 91
[2023-12-22] MEDS: POTASSIUM CHLORIDE 10MEQ SR TABLET PO ONE (18:41)
[2023-12-22 20:55] VITALS: BP 161/93; TEMP 101.4; O2SAT 92
[2023-12-23] VITALS (8 sets, daily range): BP systolic 128–146; BP diastolic 85–96; TEMP 97.9–102.3; O2SAT 92–94
[2023-12-23] MEDS: oxyCODONE 5MG TAB PO PRN (02:41)
[2023-12-23 06:21] LABS: BASO % 0.1 % (0.0-1.0); EOS # 0.1 10^3/uL (0.0-0.5); EOS % 1.4 % (0.0-3.0); HEMATOCRIT 28.4 % (36.0-47.0); HEMOGLOBIN 8.8 g/dl (12.0-15.5); LYMPH # 0.2 10^3/uL (1.5-5.0); LYMPH % 2.3 % (24.0-44.0); MEAN CORPUSCULAR HEMOGLOBIN 26.6 pg (27.0-33.0); MEAN CORPUSCULAR VOLUME 85.8 fl (80.0-96.0); MONO # 0.5 10^3/uL (0.0-0.8); MONO % 6.5 % (2.0-8.0); NEUTROPHILS # 6.9 10^3/uL (1.5-8.5); NEUTROPHILS % 89.1 % (36.0-66.0); PLATELET COUNT, AUTOMATED 257 10^3/uL (150-450); RED BLOOD COUNT 3.31 10^6/uL (4.00-5.40); WHITE BLOOD COUNT 7.7 10^3/uL (4.0-10.0)
[2023-12-23 06:39] LABS: BLOOD UREA NITROGEN 10 MG/DL (9-23); CALCIUM LEVEL 8.5 MG/DL (8.3-10.6); CARBON DIOXIDE LEVEL 27 MMOL/L (20-31); CHLORIDE LEVEL 103 MMOL/L (98-107); CREATININE FOR GFR 0.38 MG/DL (0.55-1.30); GLOMERULAR FILTRATION RATE > 60.0 (>45); GLUCOSE, FASTING 105 MG/DL (74-106); POTASSIUM SERUM 3.6 MMOL/L (3.5-5.1); SODIUM LEVEL 139 MMOL/L (136-145)
[2023-12-23] MEDS: DOCUSATE SOD LIQ 100MG/10ML UDC PO SCH (10:12)
[2023-12-23] MEDS: ACETAMINOPHEN *IV* 1,000 MG in IV 1 EA IV ONE (21:30)
[2023-12-23 23:31] LABS: MAGNESIUM LEVEL 1.8 MG/DL (1.8-2.4); POTASSIUM SERUM 3.5 MMOL/L (3.5-5.1)
[2023-12-24 04:25] VITALS: BP 132/91; TEMP 100.1; O2SAT 97
[2023-12-24] MEDS: ACETAMINOPHEN 325 MG TAB PO PRN (05:25)
[2023-12-24 06:19] LABS: BASO % 0.1 % (0.0-1.0); EOS # 0.1 10^3/uL (0.0-0.5); EOS % 1.6 % (0.0-3.0); HEMATOCRIT 29.3 % (36.0-47.0); HEMOGLOBIN 9.2 g/dl (12.0-15.5); LYMPH # 0.2 10^3/uL (1.5-5.0); LYMPH % 3.2 % (24.0-44.0); MEAN CORPUSCULAR HEMOGLOBIN 26.6 pg (27.0-33.0); MEAN CORPUSCULAR HGB CONC 31.4 g/dl (32.0-36.5); MEAN CORPUSCULAR VOLUME 84.7 fl (80.0-96.0); MONO # 0.5 10^3/uL (0.0-0.8); MONO % 6.7 % (2.0-8.0); NEUTROPHILS # 6.6 10^3/uL (1.5-8.5); NEUTROPHILS % 87.5 % (36.0-66.0); PLATELET COUNT, AUTOMATED 265 10^3/uL (150-450); RED BLOOD COUNT 3.46 10^6/uL (4.00-5.40); WHITE BLOOD COUNT 7.6 10^3/uL (4.0-10.0)
[2023-12-24 06:50] LABS: BLOOD UREA NITROGEN 11 MG/DL (9-23); CALCIUM LEVEL 8.7 MG/DL (8.3-10.6); CARBON DIOXIDE LEVEL 28 MMOL/L (20-31); CHLORIDE LEVEL 104 MMOL/L (98-107); CREATININE FOR GFR 0.36 MG/DL (0.55-1.30); GLOMERULAR FILTRATION RATE > 60.0 (>45); GLUCOSE, FASTING 106 MG/DL (74-106); MAGNESIUM LEVEL 1.9 MG/DL (1.8-2.4); POTASSIUM SERUM 3.7 MMOL/L (3.5-5.1); SODIUM LEVEL 138 MMOL/L (136-145)
[2023-12-24] MEDS: OMEPRAZOLE 20MG CAP PO SCH (11:33)
[2023-12-24] MEDS ORDERED: oxyCODONE 5MG TAB PO PRN (16:00)
[2023-12-24] MEDS: ACETAMINOPHEN 500 MG TAB PO SCH (18:28)
[2023-12-24] MEDS: IBUPROFEN 600MG TAB PO SCH (18:28)
[2023-12-24] MEDS: GABAPENTIN 100 MG CAP PO SCH (22:18)
[2023-12-24] MEDS: MIRTAZAPINE 7.5MG PER 1/2 TABLET PO SCH (22:18)
[2023-12-24 23:54] VITALS: BP 151/83; TEMP 98.8; O2SAT 97
[2023-12-25] MEDS: oxyCODONE 5MG TAB PO PRN ×2 (01:18→16:16)
[2023-12-25 03:33] VITALS: BP 118/67; TEMP 98.1; O2SAT 96
[2023-12-25 05:31] LABS: BASO % 0.4 % (0.0-1.0); EOS # 0.2 10^3/uL (0.0-0.5); EOS % 2.8 % (0.0-3.0); HEMATOCRIT 29.5 % (36.0-47.0); HEMOGLOBIN 9.1 g/dl (12.0-15.5); LYMPH # 0.3 10^3/uL (1.5-5.0); MEAN CORPUSCULAR HEMOGLOBIN 26.5 pg (27.0-33.0); MEAN CORPUSCULAR HGB CONC 30.8 g/dl (32.0-36.5); MONO # 0.6 10^3/uL (0.0-0.8); MONO % 8.8 % (2.0-8.0); NEUTROPHILS # 5.6 10^3/uL (1.5-8.5); NEUTROPHILS % 82.3 % (36.0-66.0); PLATELET COUNT, AUTOMATED 254 10^3/uL (150-450); RED BLOOD COUNT 3.43 10^6/uL (4.00-5.40); WHITE BLOOD COUNT 6.8 10^3/uL (4.0-10.0)
[2023-12-25 05:55] LABS: BLOOD UREA NITROGEN 15 MG/DL (9-23); CALCIUM LEVEL 8.6 MG/DL (8.3-10.6); CARBON DIOXIDE LEVEL 28 MMOL/L (20-31); CHLORIDE LEVEL 105 MMOL/L (98-107); GLOMERULAR FILTRATION RATE > 60.0 (>45); GLUCOSE, FASTING 96 MG/DL (74-106); MAGNESIUM LEVEL 2.1 MG/DL (1.8-2.4); POTASSIUM SERUM 3.5 MMOL/L (3.5-5.1); SODIUM LEVEL 138 MMOL/L (136-145)
[2023-12-25] MEDS: MIRALAX *UNIT DOSE* 17GM PACKET PO SCH (08:34)
[2023-12-25] MEDS: METAMUCIL (PSYLLIUM) PACKET PO SCH (08:34)
[2023-12-25] MEDS: oxyCODONE 20MG CR TAB PO SCH (08:35)
[2023-12-25] MEDS: OMEPRAZOLE 20MG CAP PO SCH (08:35)
[2023-12-25] MEDS: SENNA 8.6 MG TAB (SENOKOT) PO SCH (08:36)
[2023-12-25 12:00] VITALS: BP 119/66; TEMP 97.3; O2SAT 96
[2023-12-25] MEDS: THIAMINE INJection 500 MG in NS 100 ML IV SCH (15:45)
[2023-12-25 20:00] VITALS: BP 129/73; TEMP 97.5; O2SAT 96
[2023-12-26] MEDS: LIDOCAINE 5% (LIDODERM) PATCH TD PRN (02:13)
[2023-12-26 04:00] VITALS: BP 111/73; TEMP 97.3; O2SAT 97
[2023-12-26 22:36] VITALS: BP 109/69
[2023-12-27 04:42] VITALS: BP 110/64; TEMP 97.3; O2SAT 94
[2023-12-27] MEDS ORDERED: SCOPOLAMINE 1MG TRANSDERMAL PATCH TOP PRN (10:20)
[2023-12-29] MEDS: LORazepam 0.5 MG TAB PO PRN (21:38)
[2023-12-30] MEDS: oxyCODONE 5MG TAB PO PRN (15:35)
[2023-12-31] MEDS: LORazepam 1 MG TAB PO PRN (12:58)
[2023-12-31] MEDS: LORazepam 1 MG TAB PO SCH (22:17)
[2024-01-01] MEDS: MORPHINE 10MG/0.5ML ORAL CONCENTRATE SOLUTION U/D SL PRN ×2 (09:45→19:42)
[2024-01-01] MEDS: MORPHINE 10MG/0.5ML ORAL CONCENTRATE SOLUTION U/D SL SCH (10:17)
[2024-01-01] MEDS: LORazepam 1 MG TAB SL PRN (15:40)
[2024-01-01] MEDS: DICLOFENAC EPOLAMINE 1.3% PATCH TOP SCH (21:00)
[2024-01-01] MEDS: LORazepam 1 MG TAB SL SCH (21:00)
[2024-01-01] MEDS: OLANZapine ORAL DISINTEGRATING TAB 5MG PO SCH (21:00)
[2024-01-02] MEDS: OLANZapine ORAL DISINTEGRATING TAB 5MG PO ONE ×2 (10:22→21:24)
[2024-01-03] MEDS: OLANZapine ORAL DISINTEGRATING TAB 5MG PO SCH (21:33)
[2024-01-06] MEDS: SCOPOLAMINE 1MG TRANSDERMAL PATCH TOP SCH (09:31)
[2024-01-06] MEDS: ATROPINE SULFATE 1% OPHTH SOLN 2ML BTL SL PRN (12:25)
[2024-01-06] MEDS ORDERED: MORPHINE 10MG/0.5ML ORAL CONCENTRATE SOLUTION U/D SL PRN (12:40)
[2024-01-06] MEDS: MORPHINE 10MG/0.5ML ORAL CONCENTRATE SOLUTION U/D SL SCH (13:52)
[2024-01-06] MEDS: HYOSCYAMINE SULFATE 0.125 MG SUBL TABLET SL SCH (17:06)
== END 2024-01-06 19:00 | disposition expired | DRG 177 ==
LOC: M ED 17:33 → M ED INP 12-12 00:06 → M MS5PR 12-12 01:48 → M PCU 12-12 02:26 → M MSPAV 12-16 13:17
PROVIDERS: ADMIT Student in an Organized Health Care Education/Training Program; ATTEND General Practice
PROC: 009U3ZX Drainage of Spinal Canal, Percutaneous Approach, Diagnostic (ICD-10-PCS; principal; 2023-12-12)
DX: U07.1 COVID-19 (principal); G92.8 Other toxic encephalopathy; J12.82 Pneumonia due to coronavirus disease 2019; E22.2 Syndrome of inappropriate secretion of antidiuretic hormone; C34.2 Malignant neoplasm of middle lobe, bronchus or lung; C79.89 Secondary malignant neoplasm of other specified sites; D84.9 Immunodeficiency, unspecified; C78.2 Secondary malignant neoplasm of pleura; J44.0 Chronic obstructive pulmonary disease with (acute) lower respiratory infection; E46 Unspecified protein-calorie malnutrition; R64 Cachexia; R44.3 Hallucinations, unspecified; C78.6 Secondary malignant neoplasm of retroperitoneum and peritoneum; F05 Delirium due to known physiological condition; C79.9 Secondary malignant neoplasm of unspecified site; E03.9 Hypothyroidism, unspecified; K59.03 Drug induced constipation; I10 Essential (primary) hypertension; R42 Dizziness and giddiness; Z51.5 Encounter for palliative care; E87.6 Hypokalemia; Z66 Do not resuscitate; F32.A Depression, unspecified; E78.5 Hyperlipidemia, unspecified; T40.2X5A Adverse effect of other opioids, initial encounter; G25.81 Restless legs syndrome; K21.9 Gastro-esophageal reflux disease without esophagitis; G62.9 Polyneuropathy, unspecified; G89.3 Neoplasm related pain (acute) (chronic); D63.0 Anemia in neoplastic disease; R57.1 Hypovolemic shock; R00.0 Tachycardia, unspecified; Z79.899 Other long term (current) drug therapy; Z88.8 Allergy status to other drugs, medicaments and biological substances; Z87.891 Personal history of nicotine dependence; Z79.891 Long term (current) use of opiate analgesic

== ENCOUNTER 2023-12-22 12:45 | Outpatient (RCR) | payer MEDICARE ==
[~2023-12-22 12:45] MED LIST changes: +MORP-69 PO; +SENN-187 PO
== END 2024-01-06 ==
LOC: M ONCR 12:45
PROVIDERS: ATTEND General Practice
DX: Z51.0 Encounter for antineoplastic radiation therapy (principal); C78.01 Secondary malignant neoplasm of right lung